=== PATIENT | male | born 1970 | race Caucasian/White ===

== ENCOUNTER 2016-08-23 08:07 | Emergency (ER) | payer SELFPAY ==
[~2016-08-23] VITALS: Ht 167.6 cm; Wt 89.8 kg
[2016-08-23] MEDS ORDERED: LIPITOR10 MG PO (08:18)
[2016-08-23] MEDS ORDERED: GLUCOPHAGE500 MG PO (08:18)
== END 2016-08-23 08:31 | disposition home or self-care (01) ==
LOC: ED 08:07
DX: Z00.8 Encounter for other general examination (principal)

== ENCOUNTER 2023-11-14 02:24 | Inpatient (IN) | payer OTHER ==
[~2023-11-14] VITALS: Ht 167.6 cm; Wt 81.1 kg
[2023-11-14] VITALS (9 sets, daily range): BP systolic 113–144; BP diastolic 67–77
[~2023-11-14 02:24] MED LIST: GLUCOPHAGE500 MG PO; LIPITOR10 MG PO
[2023-11-14] MEDS ORDERED: VENTOLIN HFA18 GM INH (02:39)
[2023-11-14] MEDS ORDERED: SODIUM CHLORIDE 0.9% 1,000 ML IV SCH ×2 (02:45→03:45)
[2023-11-14] MEDS ORDERED: ALBUTEROL SULFATE 0.5% 2.5 MG/0.5 ML VIAL INH ONE (02:45)
[2023-11-14] MEDS ORDERED: methylPREDNISolone SOD SUCC 125 MG/2 ML VIAL IV ONE (02:45)
[2023-11-14] MEDS ORDERED: CEFTRIAXONE/SODIUM CHLORIDE 2 GM/100 ML PIGGYBACK IV ONE (02:45)
[2023-11-14 02:47] LABS: BASOPHILS 0.9 % (0-2); EOSINOPHILS 4.7 % (0-6); HEMATOCRIT 44.4 % (35.0-50.0); HEMOGLOBIN 14.8 g/dL (12.0-18.0); LYMPHOCYTES 25.7 % (24-44); MCH 32.3 (27-36); MCHC 33.4 g/dl (30-36); MCV 96.8 fl (81-99); MONOCYTES 8.9 % (0-12); NEUTROPHILS 59.8 % (39-80); PLATELET COUNT 264 K/uL (140-440); RBC 4.59 M/ul (4.3-5.7); RDW 13.3 (10.5-15.0)
[2023-11-14 02:51] LABS: INR 0.97 (0.80-1.30); PROTIME 12.5 Sec (11.2-14.2)
[2023-11-14 02:53] LABS: PARTIAL THROMBOPLASTIN TIME 23.9 Sec (22.9-41.3)
[2023-11-14 02:58] LABS: ALBUMIN 3.6 g/dL (3.4-5.0); ALBUMIN/GLOBULIN RATIO 0.88 (1.1-2.4); ANION GAP 12.1 (7-21); BILIRUBIN, TOTAL 0.4 ng/dL (0.2-1.0); BUN/CREATININE RATIO 8.84 (6.0-28.6); CALCIUM 9.1 mg/dL (8.5-10.1); CREATININE, SERUM 1.13 mg/dL (0.70-1.30); POTASSIUM 4.1 mmol/L (3.5-5.1); PROTEIN, TOTAL 7.7 g/dL (6.4-8.2)
[2023-11-14 03:23] LABS: INFLUENZA B NAA NEGATIVE (NEGATIVE); RESPIRATORY SYNCYTIAL VIR NAA NEGATIVE (NEGATIVE)
--- NOTE | 2023-11-14 04:25 | NUR ---
0425 - ADMITTED TOP ROOM 113 FROM ER. PT ALERT AND ORIENTED, COOPERATIVE. TACHEIPNEIC. SOB WITH EXERTION NOTED. ON ROOM AIR, LUNGS WITH EXP AND INSPIRATORY WHEEZING T/O. ORIENTED TO ROOM, SECOND IVF INFUSING. COOPERATIVE WITH ASSESSMENT. AWARE OF NEED FOR UA, PT STAED, 'i VOIDED THE AMBULANCE WAS PULLING INTHE DRIVEWAY'.
[2023-11-14] MEDS ORDERED: ALBUTEROL SULFATE 0.083% 3 ML VIAL INH PRN (04:30)
--- NOTE | 2023-11-14 06:03 | NUR ---
Resting, eyes closed, no grunting or accessory muscles used noted. cpox on at bedside sats 96%. resp 22. still no void
--- NOTE | 2023-11-14 07:47 | NUR ---
PT SITTING UP ON BED DURING SHIFT REPORT. REPORTS SOB AT THIS TIME, OBVIOUS WORK OF BREATHING. R/T IN TO GIVE NEB TREATMENT. FRESH H20 AND NEEDED ITEMS ON BEDSIDE DENIES OTHER NEEDS OF
[2023-11-14 07:50] LABS: BILIRUBIN, URINE NEGATIVE (negative); BLOOD/HGB, URINE NEGATIVE (Negative); KETONE, URINE SMALL (Negative); LEUK ESTERASE, URINE NEGATIVE (negative); NITRITE, URINE NEGATIVE (negative)
[2023-11-14] MEDS ORDERED: ALBUTEROL/IPRATROPIUM 3 ML NEB INH SCH (08:00)
[2023-11-14 08:12] LABS: AMPHETAMINES, URINE POSITIVE (NEGATIVE); BARBITURATES, URINE NEGATIVE (NEGATIVE); BENZODIAZEPINE, URINE NEGATIVE (NEGATIVE); BUPRENORPHINE, URINE NEGATIVE (NEGATIVE); CANNABINOID, URINE NEGATIVE (NEGATIVE); COCAINE, URINE NEGATIVE (NEGATIVE); ECSTASY, URINE POSITIVE (NEGATIVE); FENTANYL, URINE NEGATIVE (NEGATIVE); METHADONE, URINE NEGATIVE (NEGATIVE); OPIATES, URINE NEGATIVE (NEGATIVE); OXYCODONE, URINE NEGATIVE (NEGATIVE); PHENCYCLIDINE, URINE NEGATIVE (NEGATIVE)
--- NOTE | 2023-11-14 09:05 | NUR ---
PT EATING MORNING MEAL DENIES NEED OF ADDITIONAL ITEMS.
--- NOTE | 2023-11-14 09:07 | NUR ---
PATIENT RESTING IN BED. EYES CLOSED. DOES NOT WAKE TO STAFF ENTERING ROOM, WILL RETURN TO COMPLETE ASSESSMENT LATER THIS AM.
--- NOTE | 2023-11-14 09:14 | NUR ---
0715 LACTIC IS 5.2, REVIEWED WITH DR. VASQUEZ, REPEAT STAT LACTIC IS 4.2. REVIEWED WITH DR. VASQUEZ AND PRIMARY NURSE MICHAEL.
[2023-11-14] MEDS ORDERED: LACTATED RINGER'S 1,000 ML IV ONE (10:15)
--- NOTE | 2023-11-14 10:32 | NUR ---
PT TO THE SHOWER DOES SELF CARE. LINENS CHANGED. PT AGREES HE FEELS MUCH BETTER, RETURNS TO BED. [address] 1 LPM SATS MID 90'S.
[2023-11-14] MEDS ORDERED: methylPREDNISolone SOD SUCC 40 MG/ML VIAL IV SCH (12:00)
--- NOTE | 2023-11-14 12:22 | NUR ---
PT SITTING UP IN BED WITH MEAL NO RESP DISTRESS NO C/O SOB.
[2023-11-14] MEDS ORDERED: NICOTINE 14 MG/24 HR 1 EA TDSY TD SCH (12:37)
--- NOTE | 2023-11-14 13:00 | NUR ---
PT NOT AVAILABLE FOR VISIT. PROVIDED PRAYER.
--- NOTE | 2023-11-14 13:38 | NUR ---
PATIENT ALERT AND ORIENTED IN BED. STATES HE LIVES IN APARTMENT WITH FRIEND. HAS STAIRS WITH [facility] AND SAYS SOMETIMES HE HAS TO SIT TO REST WHILE GOING INSIDE. HAS A CANE AND NEBULIZER AT HOME. NOT ABLE TO DRIVE, WORKING ON GETTING HIS LICENSE. STATES HIS DAUGHTER DRIVES WHEN HE NEEDS ASSISTANCE. GOBHI INFORMATION ALSO PROVIDED TO PATIENT AND INSTRUCTED ON USE OF GOBHI FOR MEDICAL APPOINTMENTS, VERBALIZES UNDERSTANDING. STATES NO FINANCIAL ISSUES HIS FRIEND HE LIVES WITH CONTINUES TO WORK AND ASSIST WITH NEEDS. DISCUSSED USE OF METH. STATES HE ONLY USES IT OCCASIONALLY TO HELP HIM STAY AWAKE. DISCUSSED SIDE EFFECTS OF METH AND VE TEACHER EFFECTS OF METH. VERBALIZES UNDERSTANDING. DOES NOT WANT THIS NURSE TO CONTACT MYAANK. MAYANK CARD PROVIDED TO PATIENT AND INFORMED OF MAYANK BEING A PEER GROUP HE CAN REACH OUT TO IF HE FEELS HE NEEDS HELP QUITTING METH USE. VERBALIZES UNDERSTANDING. DENIES OTHER NEEDS AT THIS TIME. CALL LIGHT IN REACH. DEMOGRAPHICS VERIFIED WITH PATIENT. STATES HE HAS A PHONE, NUMBER IS [phone]. ADMITTING NOTIFIED.
--- NOTE | 2023-11-14 14:38 | NUR ---
DR VASQUEZ NOTIFIED OF LACTIC LEVEL HE STATES HE WILL ENTER ORDERS OF FLUID AND ABX. PT IS RESTING IN BED WITH NO OVERT SYMPTOMS OF SEPSIS. ALERT AND ORIENTED BREATHING EVEN AND UNLABORED REMAINS AFEBRILE. PT IS TALKATIVE AND UPBEAT DENIES DISCOMFORTS OR NEEDS OF
[2023-11-14] MEDS ORDERED: CEFTRIAXONE/SODIUM CHLORIDE 1 GM/100 ML PIGGYBACK IV SCH (14:41)
[2023-11-14] MEDS ORDERED: SODIUM CHLORIDE 0.9% 1,000 ML IV ONE (14:45)
--- NOTE | 2023-11-14 16:19 | NUR ---
PT UP TO TOILET RETURNS TO RESTING IN BED STATES HE HAD A GOOD NAP. DENIES DISCOMFORT NO EVIDENCE OF SOB
--- NOTE | 2023-11-14 17:51 | NUR ---
PT SITTING UP AFTER NAPPING FOR A BIT EATS MOST OF EVENING MEAL. BREATHING EVEN AND UNLABORED SATS MID 90'S. FRESH H20 TO BEDSIDE PT DENIES OTHER NEEDS.
--- NOTE | 2023-11-14 18:03 | NUR ---
medications reconciled with patient. He says he needs doses for his nebs and has been using his friend's ampules
[2023-11-14] MEDS ORDERED: GLUCAGON,HUMAN RECOMBINANT 1 MG/ML VIAL SUB-Q PRN (18:30)
[2023-11-14] MEDS ORDERED: DEXTROSE 50% 50 ML SYR IV PRN ×2 (18:30)
[2023-11-14] MEDS ORDERED: DEXTROSE 5% 1,000 ML IV PRN (18:30)
[2023-11-14] MEDS ORDERED: IBLOOD GLUCOSE TEST STRIP 1 EA TEST XX PRN (18:30)
--- NOTE | 2023-11-14 18:52 | NUR ---
LACTIC CONTINUES TO BE ELEVATED BUT TRENDING DOWNWARD. LAB PHONES REPORTING 2.6 DR VASQUEZ NOT CALLED BECAUSE IT IS DOWN FROM 3.4 AND 4.2 EARLIER. ABX HAVE SINCE BEEN STARTED AND BOLUS ADMINISTERED
--- NOTE | 2023-11-14 20:22 | NUR ---
ON 1LNC, LUNGS WITH EXP WHEEZING PRESNET, SLIGHT SOB WITH EXERTION, CPOX ON AT BEDSIDE 90-95%, TACHY AT REST 102BPM. 2 SLM PATENT. CBG 308 ' I JUST HAD A CAKE', 'I DONT WANT THE INSULIN, BASIL NEVER HAD INSULIN, I DONT NEED IT', EXPLAINED TO PT SEVERAL TIMES, STILL DECLINED, WILL NOTIFY MD. COOPERATIVE OTHER MCMULLEN. NO C/O PAIN, DECLINES MELATONIN
[2023-11-14] MEDS ORDERED: IBLOOD GLUCOSE TEST STRIP 1 EA TEST XX SCH (21:00)
[2023-11-14] MEDS ORDERED: MELATONIN 3 MG TAB PO SCH (21:00)
[2023-11-14] MEDS ORDERED: INSULIN LISPRO 100 UNIT/ML ML SUB-Q SCH (21:00)
--- NOTE | 2023-11-14 21:58 | NUR ---
DR VAZQUEZ NOTIFIED OF PT DECLINING SS INSULI, AND OF CREATINEN LEVEL OF 2.6. NEW ORDERS FOR AM LACTIV LEVEL OBTAINED.
[2023-11-15] VITALS (11 sets, daily range): BP systolic 110–137; BP diastolic 60–80
--- NOTE | 2023-11-15 00:34 | NUR ---
resting, eyes closed, O2 1LNC, cpox on at bedside sats 93%, pulse 99, no distress noted. turns and reposisions self in bed
--- NOTE | 2023-11-15 03:34 | NUR ---
Resting, no distress, eyes closed, O2 1LNC, not chronic. CPOX on at bedside satts 93%. turns and reposisions self in bed. uses urinal
--- NOTE | 2023-11-15 03:51 | NUR ---
PT USED CALL LIGHT, ASKING FOR NEB TX. O2O 1LNC, RESP 28, ANXIOUS, HYPERVENTILATING, SATS 83%, PT STEAD HE DROPPED T6O 78%. O2 INCREAED TO 2LNC. LUNGS THIGHT BILAT, MOIST NON PRODUCTIVE COUGH PRESENT. RECEIVED NEB TX AND SCHEDULED SOLUMEDROL IV. CALMER DOWN, SATS 90% ON 2LNC, PULSE 112, RESP 24, CAKMER. VOIDED, USED URINAL.
[2023-11-15 05:45] LABS: BASOPHILS 0.1 % (0-2); EOSINOPHILS 0.1 % (0-6); HEMATOCRIT 41.7 % (35.0-50.0); HEMOGLOBIN 13.8 g/dL (12.0-18.0); LYMPHOCYTES 6.5 % (24-44); MCH 31.9 (27-36); MCHC 33.1 g/dl (30-36); MCV 96.3 fl (81-99); MONOCYTES 4.5 % (0-12); NEUTROPHILS 88.8 % (39-80); PLATELET COUNT 255 K/uL (140-440); RBC 4.33 M/ul (4.3-5.7); RDW 13.4 (10.5-15.0)
--- NOTE | 2023-11-15 05:46 | NUR ---
Calmer, resting, eyes closed no distress, on 2LNC. . Uses urinal, voiding QS, tolerataing liquids well. receiving solumedrol, CBG at begining of shift was 308, Pt declined SS Insulin, teaching done, not receptive, MD was informed. L front chest nicotine patch in place, 2 SL patent.
--- NOTE | 2023-11-15 05:56 | NUR ---
Pt has used home CPAP all HS, took melatoning for sleep, effective. tolerataing liquids well. turns and repositions self in bed. on room air otherwise. received 500cc bolus earlier on shift for creatine level of 4.04 and 20mEq of potassioum po fro potassium of 2.8 as per labs. Currently awake, cooperative with vitls, labs and standing daily weight at 131.6KG. Up to brp, 1PA/FWW. Has used urinal, voiding small amounts QS. no c/o pain or lightheadiness
[2023-11-15 05:57] LABS: ANION GAP 10.5 (7-21); BUN/CREATININE RATIO 21.27 (6.0-28.6); CREATININE, SERUM 0.94 mg/dL (0.70-1.30); MAGNESIUM 2.1 mg/dL (1.8-2.4); POTASSIUM 4.5 mmol/L (3.5-5.1)
--- NOTE | 2023-11-15 07:56 | NUR ---
PT RESTING EYES CLOSED AT TIME OF SHIFT REPORT. AWAKE NOW FOR CBG DENIES DISCOMFORTS OR NEEDS. BREATHING EVEN AND UNLABORED SATS 94% 02 TURNED TO 1 L. FRESH H20 TO BEDSIDE NEEDED ITEMS IN REACH
--- NOTE | 2023-11-15 08:10 | NUR ---
PATIENT IN BED AT THIS TIME. RICE FARMER WENT INTO ROOM FOR PATIENT ROUNDINGS AND BLOOD SUGAR WAS TAKEN. CALL LIGHT WITHIN REACH, NO FURTHER NEEDS AT THIS TIME.
--- NOTE | 2023-11-15 08:45 | NUR ---
PT AGREES HE IS READY FOR MORNING MEAL. USES URINAL PER STAFF REQUEST REFUSES CHAIR STATING MAYBE LATER
[2023-11-15] MEDS ORDERED: ENOXAPARIN SODIUM 40 MG/0.4 ML SYR SUB-Q SCH (09:00)
--- NOTE | 2023-11-15 09:44 | NUR ---
PT CONTINUES RESTING IN BED ENCOURAGED TO GET UP TO CHAIR AND DO SOME WALKING TOLERATED. PT VERBALIZES UNDERSTANDING REPORTS HE PLANS TO SHOWER AFTER A BIT AND UNDERSTANDS NEED FOR ACTIVITY
--- NOTE | 2023-11-15 10:40 | NUR ---
PATIENT IN BED AT THIS TIME. BUY BOAT OPERATOR GOT EVERYTHING READY FOR PATIENT TO SHOWER. CALL LIGHT WITHIN REACH, NO FURTHER NEEDS AT THIS TIME.
--- NOTE | 2023-11-15 10:52 | NUR ---
UR CLINICAL REVIEW: [facility] CRITERIA INPATIENT CRITERIA FOR ASTHMA ODS [facility] 11/14/23 @ 1238 ORDER MATCHES REG RECORDS FAXED FOR AUTH REVIEW DISCHARGE TO HOME WHEN STABLE 11/16/23
[2023-11-15] MEDS ORDERED: PHARMACY RENAL DOSE ADJUSTMENT 1 DOSE MISC PO SCH (12:00)
--- NOTE | 2023-11-15 12:28 | NUR ---
PT AWAKENED FOR NOON MEAL. HE WAS UP IN THE CHAIR EARLIER AND THEN RETUNED TO BED TO REST EYES CLOSED
--- NOTE | 2023-11-15 12:32 | NUR ---
PATIENT IN BED AT THIS TIME. BATCHMAKER WENT INTO PATIENTS ROOM FOR PATIENT ROUNDINGS AND TOOK PATIENTS BLOODSUGAR. CALL LIGHT WITHIN REACH, NO FURTHER NEEDS AT THIS TIME.
--- NOTE | 2023-11-15 14:56 | NUR ---
PT REQUESTING TO GO HOME, STATES HE FEELS MUCH BETTER. LUNGS ARE STILL WHEEZY THROUGHOUT MAINTAINING SATS ON RA LOW 90'S. DENIES SOB OR DISCOMFORTS. PLAN OF CARE EDUCATION PROVIDED, PT VERBALIZES UNDERSTANDING.
--- NOTE | 2023-11-15 16:08 | NUR ---
PATIENT IN BED AT THIS TIME. CHEMIST WENT INTO PATIENTS ROOM FOR PATIENT ROUNDINGS. CALL LIGHT WITHIN REACH, NO FURTHER NEEDS AT THIS TIME.
--- NOTE | 2023-11-15 17:53 | NUR ---
R/T REPORTS PT SATS DIPPED TO MID 80'S RETURNED TO 02 2L NC. PT UP IN BED WITH EVENING MEAL AT THIS TIME BREATHING EVEN AND UNLABORED DENIES SOB
--- NOTE | 2023-11-15 19:27 | NUR ---
REPORT RECEIVED FROM DAY SHIFT RN. PT AMB IN [place]OM[place] WITH . BACK TO ROOM CODI WELL. SpO2 UPON RETURNING TO ROOM 90% ON RA. PT DENIES NEEDS. WHITE BOARD UPDATED. CALL LIGHT IN REACH.
[2023-11-15] MEDS ORDERED: methylPREDNISolone SOD SUCC 125 MG/2 ML VIAL IV SCH (20:00)
--- NOTE | 2023-11-15 20:31 | NUR ---
EVENING ASSESSMENT COMPLETE. SCHEDULED MEDS ADMIN PER EMAR. PT DENIES PAIN OR NAUSEA. DENIES SOB. SpO2 LOW 90'S WITH 1L/NC IN PLACE. HR 100'S. SCATTERED WHEEZE HEARD THROUGHOUT. OCCASIONAL COUGH NOTED. PT REPORTS SMALL AMOUNT CLEAR PHLEGM. PT DENIES QUESTIONS OR CONCERNS. CALL LIGHT IN REACH.
--- NOTE | 2023-11-15 22:43 | NUR ---
PT AWAKE IN BED. DENIES NEEDS. SpO2 92% ON 1L/NC. HR 90'S.
[2023-11-15] MEDS ORDERED: ACETAMINOPHEN 500 MG TAB PO PRN (23:45)
[2023-11-16] VITALS (10 sets, daily range): BP systolic 109–141; BP diastolic 53–84
--- NOTE | 2023-11-16 00:57 | NUR ---
PATIENT REPORTING 10/10 BLE PAIN. PATIENT REPORTS THIS IS A CHRONIC PAIN AND HE THINKS IT IS RESTLESS LEGS. PRN PAIN MEDICATION ADMINISTERED. 2 PILLOWS PROVIDED PER PATIENT REQUEST. PATIENT HAS NO FURTHER NEEDS. CALL LIGHT IN REACH.
--- NOTE | 2023-11-16 02:00 | NUR ---
PT AMBULATING IN THOMAS INDEPENDENTLY. SpO2 93% ON RA UPON RETURNING TO ROOM. SCHEDULED MEDS ADMIN PER EMAR. PT DENIES SOB. WHEEZE AUSCULTATED THROUGHOUT. PT DENIES SOB. REQUESTING TO SHOWER. SUPPLIES PROVIDED. IV'S WRAPPED.
--- NOTE | 2023-11-16 02:29 | NUR ---
PT OUT OF THE SHOWER. CODI WELL. PT REQUESTING NEB TX. RT NOTIFIED.
--- NOTE | 2023-11-16 03:49 | NUR ---
PT RESTING IN BED ON RIGHT SIDE WITH EYES CLOSED. RESPIRATIONS EVEN. SpO2 91% ON RA. HR LOW 100'S.
--- NOTE | 2023-11-16 04:45 | NUR ---
CPOX ALARMING. PT LYING ON STOMACH SNORING SOFTLY. SpO2 BRIEFLY IN THE 70'S. PT AWAKENED AND ROLLED ON TO BACK. 1L/NC PLACED AND PT ENCOURAGED TO DEEP BREATHE. SpO2 QUICKLY BACK TO LOW 90'S.
--- NOTE | 2023-11-16 05:54 | NUR ---
PT LYING ON RIGHT SIDE WITH EYES CLOSED. AWAKENS EASILY. VS AND I&O OBTAINED. NO NEEDS AT THIS TIME. CALL LIGHT IN REACH.
[2023-11-16 06:12] LABS: BASOPHILS 0.2 % (0-2); HEMOGLOBIN 13.3 g/dL (12.0-18.0); LYMPHOCYTES 6.3 % (24-44); MCH 32.7 (27-36); MCHC 34.2 g/dl (30-36); MCV 95.6 fl (81-99); MONOCYTES 2.1 % (0-12); NEUTROPHILS 91.4 % (39-80); PLATELET COUNT 245 K/uL (140-440); RBC 4.08 M/ul (4.3-5.7); RDW 13.4 (10.5-15.0)
[2023-11-16 06:24] LABS: BUN/CREATININE RATIO 28.57 (6.0-28.6); CALCIUM 9.1 mg/dL (8.5-10.1); CREATININE, SERUM 0.91 mg/dL (0.70-1.30); MAGNESIUM 2.2 mg/dL (1.8-2.4)
--- NOTE | 2023-11-16 07:11 | NUR ---
RECEIVED REPORT FROM HANS MORGAN. PT RESTING IN BED WITH EYES CLOSED. 1L O2 IN PLACE VIA NC, CPOX IN PLACE, O2 SATURATION >90%. CALL LIGHT WITHIN REACH.
--- NOTE | 2023-11-16 09:15 | NUR ---
PT AWAKE SITTING UP IN BED. PT DENIES PAIN, NAUSEA, AND SOB AT THIS TIME. LUNG SOUNDS CLEAR AT THIS TIME, PT VERBALIZES UNDERSTANDING OF ACAPELLA DEVICE AT BEDSIDE, STATES HE FEELS "BETTER" AFTER BREATHING TREATMENT THIS MORNING. O2 VIA NC AT 2L, O2 SATURATION PER CPOX >94%, O2 WEANED DOWN TO 1L VIA NC, O2 SATURATION REMAINS >90%. PT CONTINUES TO DENY SOB AFTER WEANING O2. PT STATES NO CURRENT NEEDS, CALL LIGHT WITHIN REACH.
--- NOTE | 2023-11-16 09:24 | NUR ---
STATED PCP NO LONGER SEES PATIENTS PCP. PATIENT NOTIFIED. STATES HE IS OK WITH STAFF FINDING HIM A PCP. CALLED [facility]. FOLLOW-UP APPOINTMENT SCHEDULED. PCP ESTABLISHED WITH STEVEN VIGIL. REGISTRATION NOTIFIED TO UPDATE CHART.
[2023-11-16] MEDS ORDERED: NICOTINE 14 MG/24 HR 1 EA TDSY TD SCH (09:25)
[2023-11-16] MEDS ORDERED: INSULIN LISPRO 100 UNIT/ML ML SUB-Q SCH (12:00)
--- NOTE | 2023-11-16 14:40 | NUR ---
PT FATHER CALLS FOR UPDATE, PT STATES HIS FATHER IS OKAY TO UPDATE. THIS RN TO PT BEDSIDE AFTER UPDATE, PT SITTING UP ON EDGE OF BED, O2 SATURATION 85% ON 1L NC PER CPOX, PT SOB, STATES HE WOULD LIKE A BREATHING TREATMENT. O2 INCREASED TO 3L NC, O2 SATURATION INCREASES >89% ON 3L VIA NC. RT CALLED, WEDDING CAKE DESIGNER TO BEDSIDE TO ADMINISTER PRN BREATHING TREATMENT.
--- NOTE | 2023-11-16 14:49 | NUR ---
PT CALLED FOR BREATHING TREATMENT. SITTING ON EDGE OF BED TRIPODING WITH AUDIBLE ACROSS THE ROOM WHEEZING. ADMINISTERED.
[2023-11-16] MEDS ORDERED: ALBUTEROL SULFATE 0.5% 2.5 MG/0.5 ML VIAL INH ONE (15:00)
[2023-11-16] MEDS ORDERED: ALBUTEROL SULFATE 0.042% 1.25 MG/3 ML VIAL INH ONE (15:00)
[2023-11-16] MEDS ORDERED: ALBUTEROL SULFATE 0.5% 2.5 MG/0.5 ML VIAL ONE (15:02)
[2023-11-16] MEDS ORDERED: ALBUTEROL SULFATE 0.083% 3 ML VIAL INH ONE ×2 (15:15)
--- NOTE | 2023-11-16 15:16 | NUR ---
UR CONCURRENT REVIEW: [facility]-DOES NOT MEET GL DAY 2 DUE TO TACHYPNEA AND TACHYCARDIA, VIARANCE COMPLETED ODS [facility] 11/14/23 @ 1238 AWAITING AUTH DISCHARGE TO HOME WHEN STABLE
--- NOTE | 2023-11-16 15:38 | EKG ---
[facility] [address] [facility] [place] [address] Signed Sinus tachycardia with premature ventricular complexes or fusion complexes Low voltage QRS Borderline ECG No previous ECGs available Confirmed by Wendy Quinonez MD ([id number]) on 11/16/2023 3:38:07 PM Electronically Signed By: WENDY QUINONEZ MD 11/16/23 1538 PATIENT NAME: GRETCHEN BOYCE TIM Electrocardiogram DATE OF : 68 PHYSICIAN: WENDY QUINONEZ MD REPORT #: [id number] REPORT IS CONFIDENTIAL AND NOT TO BE RELEASED WITHOUT AUTHORIZATION
--- NOTE | 2023-11-16 15:45 | NUR ---
PT LYING IN BED, STATES SOB HAS RESOLVED. O2 SATURATION >91% ON 3L O2 VIA NC. PT STATES HE "FEELS BETTER" AFTER HAVING PRN BREATHING TREATMENT AND TREATMENT WITH RT. PT LUNG SOUNDS CLEAR AT THIS TIME, WHEEZING RESOLVED FROM EPISODE OF SOB AT THIS TIME. PT STATES NO FURTHER NEEDS AT THIS TIME, CALL LIGHT WITHIN REACH. PT EDUCATION ON USING CALL LIGHT WHEN SOB OCCURS, PT VERBALIZES UNDERSTANDING.
[2023-11-16] MEDS ORDERED: ALBUTEROL/IPRATROPIUM 3 ML NEB INH SCH (16:00)
--- NOTE | 2023-11-16 16:58 | NUR ---
THIS RN CALLS DR. HOOKER TO UPDATE ON PT CBG OF 394. STATES TO GIVE THE 13 UNITS PER SS AND THAT HE WILL MAKE ANY FURTHER NEEDED CHANGES. NO NEW ORDERS AT THIS TIME. REPEAT BACK PERFORMED.
--- NOTE | 2023-11-16 18:20 | NUR ---
PT AMBULATING HALLWAY.
--- NOTE | 2023-11-16 19:05 | NUR ---
REPORT RECEIVED FROM DEB MAXWELL. pt RESTING IN THE BED. BOARD UPDATED. NO OTHER NEEDS AT THIS TIME. CALL LIGHT WITHIN REACH.
--- NOTE | 2023-11-16 20:35 | NUR ---
ASSESSMENT AND VITAL SIGNS DONE. pt LUNG SOUNDS CLEAR. SCHEDULED MEDICATIONS ADMINISTERED. BG CHECKED WITH A RESULTS OF 360. SS INSULIN ADMINISTERED. SNACK PROVIDED. WATER REFRESHED. pt DENIES ANY OTHER NEEDS AT THIS TIME. pt INDEPENDENT IN THE RM. CALL LIGHT WITHIN REACH.
[2023-11-16] MEDS ORDERED: INSULIN GLARGINE-YFGN 100 UNIT/ML ML SUB-Q SCH (21:00)
--- NOTE | 2023-11-16 23:45 | NUR ---
pt WALKING AROUND MED/SURG TO TRY AND REDUCE THE PAIN IN HIS LEG. pt DENIES ANY NEEDS AT THIS TIME. CALL LIGHT WITHIN REACH.
--- NOTE | 2023-11-17 01:13 | NUR ---
pt TOOK A SHOWER AT 0030 FOR HIS COMFORT. pt INDEPENDENT IN THE RM. pt IS NOW RESTING IN THE BED WITH EYES CLOSED. RR EVEN AN UNLABORED. CALL LIGHT WITHIN.
--- NOTE | 2023-11-17 03:29 | NUR ---
pt SITTING IN THE RECEIVING A BREATHING TREATMENT FROM RT. pt DENIES ANY OTHER NEEDS AT THIS TIME. CALL LIGHT WITHIN REACH.
[2023-11-17 05:38] LABS: BASOPHILS 0.1 % (0-2); HEMATOCRIT 38.5 % (35.0-50.0); HEMOGLOBIN 13.2 g/dL (12.0-18.0); LYMPHOCYTES 6.6 % (24-44); MCH 32.6 (27-36); MCHC 34.3 g/dl (30-36); MCV 95.1 fl (81-99); MONOCYTES 3.4 % (0-12); NEUTROPHILS 89.9 % (39-80); PLATELET COUNT 254 K/uL (140-440); RBC 4.05 M/ul (4.3-5.7); RDW 13.2 (10.5-15.0)
[2023-11-17 05:42] VITALS: BP 124/67
--- NOTE | 2023-11-17 05:46 | NUR ---
CHURCH SECRETARY OBTAINED VITALS AND I&O. PT URINAL EMPTIED. PT STATES NO NEEDS AT THIS TIME. CALL LIGHT WITHIN REACH.
[2023-11-17 05:47] LABS: ANION GAP 9.4 (7-21); BUN/CREATININE RATIO 26.8 (6.0-28.6); CREATININE, SERUM 0.97 mg/dL (0.70-1.30); MAGNESIUM 2.3 mg/dL (1.8-2.4); POTASSIUM 4.4 mmol/L (3.5-5.1)
--- NOTE | 2023-11-17 06:20 | NUR ---
pt UP UNTIL APPROXIMATELY MIDNIGHT THEN pt FINALLY WAS ABLE TO LAY DOWN AND REST AFTER A SHOWER. pt LUNG SOUND ARE CLEAR. pt RECEIVED BREATHING TREATMENTS Q4 PER ORDER. pt ON 2LNC THROUGH OUT THE NIGHT AND SATTING AT 95-97%.
--- NOTE | 2023-11-17 07:15 | NUR ---
RECEIVED REPORT FROM HANS STEPHENS. PT RESTING IN BED WITH EYES CLOSED, BREATHING EVEN AND UNLABORED. CPOX IN PLACE, O2 SAT >90% ON 2L NC. CALL LIGHT WITHIN REACH.
--- NOTE | 2023-11-17 09:34 | NUR ---
PT AWAKE IN BED. PT DENIES PAIN, NAUSEA AND SOB. LUNG SOUNDS CLEAR IN BASES, FAINT EXPIRATORY WHEEZE HEARD IN UPPER LOBES, PT WORKED WITH RT JUST PRIOR TO THIS ASSESSMENT. PT STATES NO NEEDS AT THIS TIME, CALL LIGHT WITHIN REACH.
[2023-11-17 09:39] VITALS: BP 130/66
[2023-11-17 09:52] VITALS: BP 130/66
--- NOTE | 2023-11-17 10:12 | NUR ---
VISITED DURING SPIRITUAL CARE ROUNDS. PT APPEARED TO BE SLEEPING. DID NOT DISTURB. PROVIDED PRAYER.
[2023-11-17] MEDS ORDERED: MAGNESIUM SULFATE 2 GM/50 ML BAG IV ONE (10:30)
--- NOTE | 2023-11-17 10:57 | NUR ---
PATIENT IS SLEEPING. CM WILL NOT WAKE THE PATIENT AT THIS TIME. PATIENT WILL DC WHEN MEDICALLY STABLE.
--- NOTE | 2023-11-17 12:23 | NUR ---
PT RETURNS TO ROOM AFTER AMBULATING IN HALLWAY, EATING LUNCH. PT DENIES PAIN, NAUSEA AND SOB AT THIS TIME. PT STATES NO CURRENT NEEDS, CALL LIGHT WITHIN REACH.
--- NOTE | 2023-11-17 12:40 | NUR ---
PT USES CALL LIGHT, THIS RN TO BEDSIDE. PT STATES IV IS BURNING, IV INSERTION SITE PRESENTS WITH MINIMAL REDNESS, NO BLOOD RETURN, LEAKING WITH FLUSH. IV INFUSION STOPPED. DR. NHUNG AUGUSTINE MD STATES IS OKAY TO STO INFUSION AND NOT GIVE. PT STATES NO FURTHER NEEDS AT THIS TIME, CALL LIGHT WITHIN REACH.
[2023-11-17 13:02] VITALS: BP 121/66
--- NOTE | 2023-11-17 13:32 | NUR ---
CALL TO DM EDUCATOR, THEY WILL BE ABLE TO CONSULT FOR PATIENT TODAY AROUND 2:30-3PM. PRIMARY RN DEB NOTIFIED AND UPDATED.
[2023-11-17] MEDS ORDERED: IPRAT-ALBUT 0.5-3 ML INH (14:11)
[2023-11-17] MEDS ORDERED: ALBUTEROL2.5 MG/3 M INH (14:11)
[2023-11-17] MEDS ORDERED: PREDNISONE20 MG PO (14:16)
[2023-11-17] MEDS ORDERED: SYMBICORT 16010.2 GM INH (14:18)
[2023-11-17] MEDS ORDERED: INSULIN GL100 UNIT/1 SUB-Q (14:19)
[2023-11-17] MEDS ORDERED: ADMELOG100 UNIT/1 SUB-Q (14:20)
[2023-11-17] MEDS ORDERED: ONE TOUCH ULTR1 EACH MISC (14:22)
[2023-11-17] MEDS ORDERED: ONE TOUCH VERI EAC MISC (14:22)
[2023-11-17] MEDS ORDERED: [UNRECOGNIZED DRUG - SUPPLY] MISC (14:26)
--- NOTE | 2023-11-17 16:30 | NUR ---
PT DC PACKET AND EDUCATION GIVEN, PT VERBALIZES UNDERSTANDING. VSS. PT LEAVING WITH ALL PERSONAL BELONGINGS. PT DAUGHTER HERE TO DRIVE HIM HOME. PT AMBULATES TO FRONT OF BUILDING WITH NURSING PERSONEL.
[2023-11-17 16:34] VITALS: BP 144/85
[2023-11-17 16:36] VITALS: BP 144/85
== END 2023-11-17 16:37 | disposition home or self-care (01) | DRG 202 ==
LOC: ED 02:24 → MS 02:26
PROVIDERS: Emergency Medicine; ADMIT Student in an Organized Health Care Education/Training Program; ATTEND Student in an Organized Health Care Education/Training Program
DX: J45.901 Unspecified asthma with (acute) exacerbation (principal); E87.20 Acidosis, unspecified; F15.10 Other stimulant abuse, uncomplicated; Z71.51 Drug abuse counseling and surveillance of drug abuser; F17.210 Nicotine dependence, cigarettes, uncomplicated; E11.9 Type 2 diabetes mellitus without complications; E78.00 Pure hypercholesterolemia, unspecified; E55.9 Vitamin D deficiency, unspecified; Z87.442 Personal history of urinary calculi; Z98.890 Other specified postprocedural states; Z79.899 Other long term (current) drug therapy
CPT/HCPCS: 36415; 71045; 71046; 80048; 80053; 80307; 81003; 83036; 83605; 83735; 85025; 85610; 85730; 87040; 87502; 93005; 93010; 94640; 94644; 94667; 94668; 94760; 94761; 94762; 96376; A9270; G0378; J0696; J1650; J1815; J2919; J3475; J7030; J7121; U0002

== ENCOUNTER 2023-12-07 13:15 | Inpatient (IN) | payer OTHER ==
[~2023-12-07] VITALS: Ht 167.6 cm; Wt 80.0 kg
[~2023-12-07 13:15] MED LIST changes: +ADMELOG100 UNIT/1 SUB-Q; +ALBUTEROL2.5 MG/3 M INH; +INSULIN GL100 UNIT/1 SUB-Q; +IPRAT-ALBUT 0.5-3 ML INH; +ONE TOUCH ULTR1 EACH MISC; +ONE TOUCH VERI EAC MISC; +PREDNISONE20 MG PO; +SYMBICORT 16010.2 GM INH; +VENTOLIN HFA18 GM INH; +[UNRECOGNIZED DRUG - SUPPLY] MISC
[2023-12-07] MEDS ORDERED: ALBUTEROL/IPRATROPIUM 3 ML NEB INH PRN (13:30)
[2023-12-07] MEDS ORDERED: ALBUTEROL SULFATE 0.5% 2.5 MG/0.5 ML VIAL INH ONE ×2 (13:30→13:45)
[2023-12-07 13:37] LABS: BASOPHILS 1.1 % (0-2); HEMATOCRIT 41.8 % (35.0-50.0); HEMOGLOBIN 14.1 g/dL (12.0-18.0); LYMPHOCYTES 25.5 % (24-44); MCH 32.3 (27-36); MCHC 33.7 g/dl (30-36); MCV 95.7 fl (81-99); MONOCYTES 9.8 % (0-12); NEUTROPHILS 58.6 % (39-80); PLATELET COUNT 233 K/uL (140-440); RBC 4.36 M/ul (4.3-5.7); RDW 12.9 (10.5-15.0)
[2023-12-07 14:00] LABS: ALBUMIN 3.2 g/dL (3.4-5.0); ALBUMIN/GLOBULIN RATIO 0.86 (1.1-2.4); ANION GAP 12.8 (7-21); BILIRUBIN, TOTAL 0.7 ng/dL (0.2-1.0); BUN/CREATININE RATIO 6.6 (6.0-28.6); CREATININE, SERUM 1.06 mg/dL (0.70-1.30); MAGNESIUM 1.9 mg/dL (1.8-2.4); POTASSIUM 3.8 mmol/L (3.5-5.1); PROTEIN, TOTAL 6.9 g/dL (6.4-8.2)
[2023-12-07] MEDS ORDERED: MAGNESIUM SULFATE 2 GM/50 ML BAG IV ONE (14:30)
--- OUTSIDE RECORDS SUMMARY | 2023-12-07 14:48 | XMS ---
PreManage Notification: GRETCHEN BOYCE Security Consulting Practice Manager Events No recent Security Events currently on file CRITERIA MET - [facility] - 2 Visits in 30 Days CARE PROVIDERS -, [facility] Dentist: Life Science Teacher [facility] PHONE: [phone] -[place]- Dentist: Life Science Teacher [facility] PHONE: [phone] [place] [facility]: [facility] PHONE: [phone] Kyle has no Care Guidelines for this patient. E.D. VISIT COUNT (12 MO.) 2 [facility] TOTAL 2 NOTE: Visits indicate total known visits. ED/UCC VISIT TRACKING (12 MO.) 12/07/2023 13:15 [facility] TYPE: Emergency COMPLAINT: - SHORTNESS OF BREATH 11/14/2023 02:25 [facility] TYPE: Emergency COMPLAINT: - SOB INPATIENT VISIT TRACKING (12 MO.) 11/14/2023 12:[address] [facility] OR TYPE: Medical Surgical COMPLAINT: - ASTHMA EXACERBATION SEPSIS METHAMPHETAMINE ABUSE DIAGNOSES: - Acidosis, unspecified - Drug abuse counseling and surveillance of drug abuser - Nicotine dependence, cigarettes, uncomplicated - Other assisted (current) drug therapy - Other specified postprocedural states - Other stimulant abuse, uncomplicated - Personal history of urinary calculi - Pure hypercholesterolemia, unspecified - Type 2 diabetes mellitus without complications - Unspecified asthma with (acute) exacerbation - Vitamin D deficiency, unspecified [email or web address]
[2023-12-07] MEDS ORDERED: predniSONE 20 MG TAB PO SCH (16:54)
[2023-12-07] MEDS ORDERED: ondansetron HCL 4 MG/2 ML VIAL IV PRN (17:00)
[2023-12-07] MEDS ORDERED: ACETAMINOPHEN 325 MG TAB PO PRN (17:00)
[2023-12-07] MEDS ORDERED: DEXTROSE 50% 50 ML SYR IV PRN ×2 (17:00)
[2023-12-07] MEDS ORDERED: IBLOOD GLUCOSE TEST STRIP 1 EA TEST XX PRN (17:00)
[2023-12-07] MEDS ORDERED: DEXTROSE 5% 1,000 ML IV PRN (17:00)
[2023-12-07] MEDS ORDERED: GLUCAGON,HUMAN RECOMBINANT 1 MG/ML VIAL SUB-Q PRN (17:00)
[2023-12-07] MEDS ORDERED: IBLOOD GLUCOSE TEST STRIP 1 EA TEST VI SCH (17:00)
[2023-12-07] MEDS ORDERED: ENOXAPARIN SODIUM 40 MG/0.4 ML SYR SUB-Q SCH (17:01)
[2023-12-07] MEDS ORDERED: ALBUTEROL SULFATE 0.083% 3 ML VIAL INH PRN (18:00)
[2023-12-07 18:08] VITALS: BP 113/64
--- NOTE | 2023-12-07 18:26 | NUR ---
PT ARRIVED TO FLOOR BLOOD SUGAR 252, NO INSULIN SLIDING SCALE ORDERS. PT TAKES METFORMIN AT HOME BUT ON ADMISSION STATES HAS NOT BEEN TAKING MEDICATIONS. PER MD HIGH DOSE INSULIN, ADD A1C TO TOMORROW LAB ORDERS. ORDERS INPUT.
--- NOTE | 2023-12-07 18:27 | NUR ---
PT IS SITTING IN BED AT THIS TIME EATING DINNER, HAS FAMILY PRESENT AT BEDSIDE. IV PATENT, SALINE LOCKED AT THIS TIME. O2 95% ON 3L NC AT THIS TIME. DOES NOT APPEAR TO BE IN RESPIRATORY DISTRESS EATING. WILL CONTINUE TO MONITOR.
[2023-12-07] MEDS ORDERED: INSULIN LISPRO 100 UNIT/ML ML SUB-Q SCH (18:30)
--- NOTE | 2023-12-07 18:46 | NUR ---
PT COMPLETED DINNER, HE STATES NOT SOB, CURRENTLY ON 3L NC. RT CALLED AFTER ASSESSMENT, HE HAS INSP/EXP WHEEZES AND VERY TIGHT, COUGH WITH DEEP INSPIRATION. RT AWARE AND WILL BE FIRST PATIENT ON ASSESSMENT TONIGHT PER RT NOW. INSULIN GIVEN. PT REQUESTING A SOFT DIET TEXTURE HE HAS NO DENTURES/TEETH. ORDER UPDATED. ALL PT CARE NEEDS MET AT THIS TIME, CALL LIGHT WITHIN REACH, LIGHTS TURNED DOWN. NO FURTHER NEEDS AT THIS TIME
--- NOTE | 2023-12-07 19:20 | NUR ---
REPORT RECEIVED FROM LONNIE MAXWELL. pt RESTING IN THE BED. pt DENIES ANY NEEDS AT THIS TIME. CALL LIGHT WITHIN REACH. BOARD UPDATED.
[2023-12-07] MEDS ORDERED: ALBUTEROL/IPRATROPIUM 3 ML NEB INH SCH (20:00)
[2023-12-07] MEDS ORDERED: BUDESONIDE 0.5 MG/2 ML VIAL INH SCH (20:00)
[2023-12-07 20:44] VITALS: BP 126/75
[2023-12-07 20:45] VITALS: BP 126/75
--- NOTE | 2023-12-07 20:46 | NUR ---
BIT SHARPENER OBTIANED VITALS AND I&O. PT BLOOD SUGAR CHECKED. PT STATES NO FURTHER NEEDS AT THIS TIME. CALL LIGHT WITHIN REACH.
--- NOTE | 2023-12-07 21:05 | NUR ---
ASSESSMENT AND VITAL SIGNS DONE. pt HAS EXPERATORY AND INSPERATORY WHEEZES. pt ON 3LNC. pt DENIES ANY SOB AT THIS TIME. CALL LIGHT WITHIN REACH. IV ASSESSED, WNL. pt DENIES ANY OTHER NEEDS AT THIS TIME.
--- NOTE | 2023-12-07 22:59 | NUR ---
CALL FROM CACHORRO IN IMAGING, ON WAY TO GET pt. THIS RN IN ROOM AND FOUND pt W/O O2, O2 SET TO 3LNC-pt AWOKE EASILY AND STATES, "YEAH I FORGET TO PUT IT BACK ON AFTER I WENT PEE". SPO2 ON RA, 89%, 3LNC BACK IN PLACE AND NOW UPPER 90'S. pt EDUCATED ON IMPORTANCE OF KEEPING O2 IN PLACE AND HAVING STAFF ASSIST TO BATHROOM, pt WILL HAVE BED ALARM MOVING FORWARD. PRIMARY RN AND MANUFACTURING QUALITY TECHNICIAN AWARE. pt OFF FLOOR AT THIS TIME FOR ORDERED IMAGING.
--- NOTE | 2023-12-07 23:45 | NUR ---
pt BACK FROM CT AND REQUESTS A SHOWER. pt SET UP FOR SHOWER. 3LNC. pt DENIES ANY OTHER NEEDS AT THIS TIME. CALL LIGHT WITHIN REACH.
[2023-12-08] VITALS (8 sets, daily range): BP systolic 110–121; BP diastolic 56–73
--- NOTE | 2023-12-08 01:41 | NUR ---
FINANCIAL OPERATIONS ANALYST OBTAINED VITALS AND I&O. PT STATES NO NEEDS AT THIS TIME. CALL LIGHT WITHIN REACH.
--- NOTE | 2023-12-08 03:05 | NUR ---
pt RESTING IN THE BED WITH EYES CLOSED. pt TITRATED DOWN TO RA AT THIS TIME. pt SATTING AT 91%. NO OTHER NEEDS AT THIS TIME. CALL LIGHT WITHIN REACH.
--- NOTE | 2023-12-08 05:30 | NUR ---
VITAL SIGNS AND ASSESSMENT. pt HAS WHEEZES THROUGH OUT HIS LUNGS. pt DENIES ANY NEEDS AT THIS TIME. CALL LIGHT WITHIN REACH.
[2023-12-08 05:41] LABS: BASOPHILS 0.2 % (0-2); HEMATOCRIT 41.9 % (35.0-50.0); HEMOGLOBIN 14.1 g/dL (12.0-18.0); LYMPHOCYTES 10.7 % (24-44); MCH 32.2 (27-36); MCHC 33.7 g/dl (30-36); MCV 95.5 fl (81-99); MONOCYTES 6.6 % (0-12); NEUTROPHILS 82.5 % (39-80); PLATELET COUNT 240 K/uL (140-440); RBC 4.38 M/ul (4.3-5.7)
[2023-12-08 05:57] LABS: ANION GAP 9.2 (7-21); BUN/CREATININE RATIO 16.66 (6.0-28.6); CALCIUM 9.1 mg/dL (8.5-10.1); CREATININE, SERUM 0.9 mg/dL (0.70-1.30); POTASSIUM 4.2 mmol/L (3.5-5.1)
[2023-12-08] MEDS ORDERED: levoFLOXacin 500 MG TAB PO SCH (06:00)
--- NOTE | 2023-12-08 08:10 | NUR ---
RECEIVED REPORT FROM JOE RN, PT RESTING WITH EYES CLOSED AT THIS TIME. ALLOW TO SLEEP AT THIS TIME, CALL LIGHT WITHIN REACH.
--- NOTE | 2023-12-08 08:13 | NUR ---
UR CLINICAL REVIEW: [facility] INPT FOR COPD [facility] 12/07/23 @ 1701 ORDER MATCHES REG WILL SEND CLINICALS FOR AUTH VIA RIGHTFAX PLAN TO DC TO HOME WHEN STABLE, 2-3 DAYS 12/10/23
[2023-12-08] MEDS ORDERED: FLUTICASONE-SA1 EAC4 INH (09:02)
[2023-12-08] MEDS ORDERED: VARENICLINE1 EACH PO (09:03)
[2023-12-08] MEDS ORDERED: METFORMIN HCL500 MG PO (09:03)
--- NOTE | 2023-12-08 09:46 | NUR ---
PT RESTING UPON ENTERING ROOM, AWAKENS TO CONVERSATION. LUNGS SOUNDS STILL WHEEZES INSP/EXP, COUGH WITH DEEP INSPIRATION, HAS SOME SPUTUM BUT NONPRODUCTIVE AT THIS TIME. SATS 94% ON RA. PT CALL LIGHT WITHIN REACH, ALL PT CARE NEEDS MET AT THIS TIME.
--- NOTE | 2023-12-08 09:50 | NUR ---
Spoke with Shade. He lives in [facility] [place] in an apartment with his SO and his 18 yo daughter. He has canes but does not needs. He has a nebulizer, but states the filter broke when he attempted to use yesterday. It is over 5 years old, I let him know I can speak with for an RX for a new one. Pt denies any issues walking. He does have over 20 [address] into his second story apartment. He bogdan issues getting in our out. States he has had asthma for years and has exacerbations. He denies financial issues. 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 He plans on dc to home with family when discharged. I will ask for an RX for a nebulizer.He would like to use [facility] for his DME. He is off o2 at this time.
--- NOTE | 2023-12-08 10:30 | NUR ---
VISITED DURING SPIRITUAL CARE ROUNDS. PT STATES SLEEPS A LOT, DENIES NEEDS, NO OVERT SIGNS OF ANXIETY. BANANA EXPERT PROVIDED SUPPORTIVE PRESENCE, HOSPITALITY, PRAYER.
[2023-12-08] MEDS ORDERED: PHARMACY RENAL DOSE ADJUSTMENT 1 DOSE MISC PO SCH (12:00)
[2023-12-08] MEDS ORDERED: IPRAT-ALBUT 0.5-3 ML INH (13:06)
--- NOTE | 2023-12-08 13:06 | NUR ---
MED REC COMPLETE
--- NOTE | 2023-12-08 14:40 | EKG ---
[facility] [address] [place] [address] Signed Sinus tachycardia Otherwise normal ECG When compared with ECG of 14-NOV-2023 02:30, fusion complexes are no longer present premature ventricular complexes are no longer present Confirmed by Migue Louise MD ([id number]) on 12/08/2023 2:40:35 PM Electronically Signed By: MIGUE LOUISE DO 12/08/23 1440 PATIENT NAME: BOYCEGRETCHEN Electrocardiogram DATE OF : 68 PHYSICIAN: MIGEU LOUISE DO REPORT #: [id number] REPORT IS CONFIDENTIAL AND NOT TO BE RELEASED WITHOUT AUTHORIZATION
--- NOTE | 2023-12-08 15:13 | NUR ---
Patient had visitors in room. Coffee was requested and given. No other cares were needed.
--- NOTE | 2023-12-08 16:33 | NUR ---
ROUNDED ON PT. PT APPEARS TO BE SLEEPING COMFORTABLY. RESPIRATIONS EVEN AND REGULAR.
--- NOTE | 2023-12-08 18:00 | NUR ---
ROUNDED ON PT. PT APPEARS TO BE SLEEPING COMFORTABLY. RESPIRATIONS EVEN AND REGULAR. CALL LIGHT WITHIN REACH.
--- NOTE | 2023-12-08 19:20 | NUR ---
REPORT RECEIVED FROM CHELSIE MAXWELL. pt RESTING IN THE BED WITH EYES CLOSED. RR EVEN AND UNLABORED. BOARD UPDATED. CALL LIGHT WITHIN REACH.
--- NOTE | 2023-12-08 20:40 | NUR ---
ASSESSMENT AND VITAL SIGNS DONE. pt UP TO THE BR, SBA. pt BACK TO BED AND SOB. RT IN RM TO GIVE BREATHING TREATMENT. WHEEZES THROUGH OUT HER LUNGS. WATER REFRESHED. BG CHECKED WITH A RESULTS OF 288, SS INSULIN ADMINISTERED. pt DENIES ANY OTHER NEEDS AT THIS TIME. CALL LIGHT WITHIN REACH.
--- NOTE | 2023-12-09 00:42 | NUR ---
pt RESTING IN THE BED WITH EYES CLOSED. RR EVEN AND UNLABORED. CALL LIGHT WITHIN REACH.
--- NOTE | 2023-12-09 02:37 | NUR ---
NO OTHER NEEDS AT THIS TIME. CALL LIGHT WITHIN REACH. pt RESTING IN THE BED WITH EYES CLOSED. RR EVEN AND UNLABORED. pt SATTING AT 91% ON RA.
[2023-12-09 05:31] LABS: PROCALCITONIN 0.07 ng/mL (())
[2023-12-09 05:42] LABS: BASOPHILS 0.7 % (0-2); EOSINOPHILS 0.4 % (0-6); HEMATOCRIT 42.6 % (35.0-50.0); HEMOGLOBIN 14.5 g/dL (12.0-18.0); LYMPHOCYTES 28.2 % (24-44); MCH 32.6 (27-36); MONOCYTES 9.1 % (0-12); NEUTROPHILS 61.6 % (39-80); PLATELET COUNT 259 K/uL (140-440); RBC 4.44 M/ul (4.3-5.7)
[2023-12-09 05:44] VITALS: BP 128/66
[2023-12-09 05:54] LABS: BUN/CREATININE RATIO 15.92 (6.0-28.6); CALCIUM 9.3 mg/dL (8.5-10.1); CREATININE, SERUM 1.13 mg/dL (0.70-1.30)
[2023-12-09 05:55] LABS: SMEAR REVIEW BLOOD SEE COMMENTS
--- NOTE | 2023-12-09 07:10 | NUR ---
REPORT RECEIVED FROM SENIOR RELATIONSHIP MANAGER RN KAT. PATIENT IS LYING IN BED WITH EYES CLOSED AND RESPIRATIONS ARE EVEN AND UNLABORED. CPOX AT THE BEDSIDE. CALL LIGHT AND PERSONAL BELONGINGS ARE WITHIN REACH.
--- NOTE | 2023-12-09 08:55 | NUR ---
MEDICATION ADMINISTERED PER APR, INITIAL ASSESSMENT COMPLETE. PT ALERT AND ORIENTED, ANSWERS QUESTIONS APPROPRIATELY. CURRENTLY REPORTS NO PAIN. PT LUNG SOUNDS CLEAR IN BUL, OCCASIONAL INSPIRATORY WHEEZE IN BLL, NO COMPLAINTS OF SOB, REPORTS HE JUST HAD RT TREATMENT BEFORE BREAKFAST. PT ON RA, CPOX AT BEDSIDE. HEART TONES HEARD WNL, BOWEL TONES ACTIVE, NO TENDERNESS TO PALPATION. PULSES FELT 2+ IN ALL EXTREMETIES, PT REPORTS CHRONIC NUMBNESS IN BILATERAL FEET. IV IN L AC FLUSHES WNL. BREAKFAST TRAY REMOVED, FRESH CUP OF COFFEE PROVIDED PER PT REQUEST. NO OTHER NEEDS AT THIS TIME, CALL LIGHT AND PERSONAL BELONGINGS IN REACH.
[2023-12-09 09:37] VITALS: BP 118/65
--- NOTE | 2023-12-09 09:48 | NUR ---
ROUNDING ON PT. PT SITTING UP IN BED ON PHONE, REPORTS NO NEEDS AT THIS TIME. CALL LIGHT AND PERSONAL BELONGINGS IN REACH.
[2023-12-09 09:53] VITALS: BP 118/65
--- NOTE | 2023-12-09 09:53 | NUR ---
HANS FINK RN MEWS AT THIS TIME.
--- NOTE | 2023-12-09 10:15 | NUR ---
Spoke with David. He plans on dc to home today. Daughter can pick him up after 3:30. Charge nurse notified. Updated Rx and chart have been faxed to [facility] for a nebulizer. They will deliver Tuesday or Tuesday. Pt states this is fine as he has a nebulizer that is several years old. He can cont. to use, but it doesn't work like it used to. Pt states he has meds for the nebulizer. Denies further needs.
--- NOTE | 2023-12-09 10:44 | NUR ---
PATIENT IN BED AT THIS TIME. COMMERCIAL AGENT SET PATIENT UP FOR SHOWER. CALL LIGHT WITHIN REACH NO FURTHER NEEDS AT THIS TIME.
--- NOTE | 2023-12-09 11:30 | NUR ---
RN REVIEWED DANAE, RN HOURLY ROUNDING AT THIS TIME.
--- NOTE | 2023-12-09 11:53 | NUR ---
RN REVIEWED DANAE, RN SHIFT SCREENING AT THIS TIME.
--- NOTE | 2023-12-09 13:34 | NUR ---
RN REVIEWED DANAE, RN HOURLY ROUNDING AT THIS TIME.
--- NOTE | 2023-12-09 14:25 | NUR ---
RN REVIEWED DANAE, RN HOURLY ROUNDING AT THIS TIME.
[2023-12-09] MEDS ORDERED: LEVOFLOXACIN500 MG PO (14:26)
[2023-12-09] MEDS ORDERED: PREDNISONE20 MG PO (14:27)
[2023-12-09 14:36] VITALS: BP 123/68
[2023-12-09 14:43] VITALS: BP 123/68
--- NOTE | 2023-12-09 15:45 | NUR ---
RN REVIEWED DANAE, FOREST ECOLOGY PROFESSOR TRANSFER/SUMMARY AT THIS TIME.
== END 2023-12-09 15:45 | disposition home or self-care (01) | DRG 189 ==
LOC: ED 13:15 → MS 17:08
PROVIDERS: Emergency Medicine; ADMIT Student in an Organized Health Care Education/Training Program; ATTEND Family Medicine
DX: J96.01 Acute respiratory failure with hypoxia (principal); J44.1 Chronic obstructive pulmonary disease with (acute) exacerbation; E11.9 Type 2 diabetes mellitus without complications; F17.210 Nicotine dependence, cigarettes, uncomplicated; Z79.51 Long term (current) use of inhaled steroids; Z79.4 Long term (current) use of insulin; Z79.52 Long term (current) use of systemic steroids
CPT/HCPCS: 36415; 71045; 71260; 80048; 80053; 82803; 83036; 83735; 84484; 85025; 85060; 93005; 93010; 94640; 94667; 94668; 94760; 94762; J1650; J1815; J3475; J7512

== ENCOUNTER 2023-12-24 17:39 | Emergency (ER) | payer OTHER ==
[~2023-12-24] VITALS: Ht 167.6 cm; Wt 89.2 kg
--- NOTE | ~2023-12-24 | EKG ---
[facility] [address] [place], [place] [address] Draft EK completed, results pending confirmation PATIENT NAME: AUSTENGRETCHEN Electrocardiogram DATE OF : 68 PHYSICIAN: PRELIMINARY REPORT #: [id number] REPORT IS CONFIDENTIAL AND NOT TO BE RELEASED WITHOUT AUTHORIZATION
[~2023-12-24 17:39] MED LIST changes: +FLUTICASONE-SA1 EAC4 INH; +LEVOFLOXACIN500 MG PO; +METFORMIN HCL500 MG PO; +VARENICLINE1 EACH PO
[2023-12-24] MEDS ORDERED: ALBUTEROL/IPRATROPIUM 3 ML NEB INH PRN (17:45)
--- OUTSIDE RECORDS SUMMARY | 2023-12-24 17:45 | XMS ---
PreManage Notification: GRETCHEN BOYCE Security Hydro Pneumatic Tester Events No recent Security Events currently on file CRITERIA MET - [facility] - 2 Visits in 30 Days CARE PROVIDERS -, [facility] Dentist: Curriculum Coordinator [facility] PHONE: [phone] -[place]- Dentist: Curriculum Coordinator [facility] PHONE: [phone] [place] [facility]: Primary [facility] PHONE: [phone] Kyle has no Care Guidelines for this patient. E.D. VISIT COUNT (12 MO.) 3 [facility] TOTAL 3 NOTE: Visits indicate total known visits. 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 TYPE: Medical Surgical COMPLAINT: - ASTHMA EXACERBATION SEPSIS METHAMPHETAMINE ABUSE DIAGNOSES: - Acidosis, unspecified - Drug abuse counseling and surveillance of drug abuser - Nicotine dependence, cigarettes, uncomplicated - Other watermelon harvesting supervisor (current) drug therapy - Other specified postprocedural states - Other stimulant abuse, uncomplicated - Personal history of urinary calculi - Pure hypercholesterolemia, unspecified - Type 2 diabetes mellitus without complications - Unspecified asthma with (acute) exacerbation - Vitamin D deficiency, unspecified [email or web address]
[2023-12-24 17:58] LABS: PH, VENOUS 7.359 (7.31-7.41)
[2023-12-24] MEDS ORDERED: IPRATROPIUM BROMIDE 2.5 ML VIAL INH ONE (18:00)
[2023-12-24] MEDS ORDERED: ALBUTEROL SULFATE 0.5% 2.5 MG/0.5 ML VIAL INH ONE (18:00)
[2023-12-24 18:01] LABS: BASOPHILS 3.5 % (0-2); EOSINOPHILS 3.7 % (0-6); HEMATOCRIT 38.9 % (35.0-50.0); HEMOGLOBIN 13.1 g/dL (12.0-18.0); LYMPHOCYTES 16.9 % (24-44); MCH 32.4 (27-36); MCHC 33.6 g/dl (30-36); MCV 96.3 fl (81-99); MONOCYTES 7.9 % (0-12); PLATELET COUNT 187 K/uL (140-440); RBC 4.04 M/ul (4.3-5.7)
[2023-12-24 18:28] LABS: ALBUMIN 3.3 g/dL (3.4-5.0); ALBUMIN/GLOBULIN RATIO 1.06 (1.1-2.4); ANION GAP 13.3 (7-21); BILIRUBIN, TOTAL 0.6 ng/dL (0.2-1.0); BUN/CREATININE RATIO 11.62 (6.0-28.6); CALCIUM 8.6 mg/dL (8.5-10.1); CREATININE, SERUM 0.86 mg/dL (0.70-1.30); MAGNESIUM 1.7 mg/dL (1.8-2.4); POTASSIUM 3.3 mmol/L (3.5-5.1); PROTEIN, TOTAL 6.4 g/dL (6.4-8.2)
[2023-12-24] MEDS ORDERED: SODIUM CHLORIDE 0.9% 1,000 ML IV ONE (18:30)
[2023-12-24 18:36] LABS: INFLUENZA B NAA NEGATIVE (NEGATIVE); RESPIRATORY SYNCYTIAL VIR NAA NEGATIVE (NEGATIVE)
[2023-12-24] MEDS ORDERED: CEFTRIAXONE/SODIUM CHLORIDE 1 GM/100 ML PIGGYBACK IV ONE (18:45)
[2023-12-24] MEDS ORDERED: AZITHROMYCIN/DEXTROSE 500 MG/250 ML PIGGYBACK IV ONE (18:45)
[2023-12-24] MEDS ORDERED: methylPREDNISolone SOD SUCC 125 MG/2 ML VIAL IV ONE (18:45)
[2023-12-24] MEDS ORDERED: MAGNESIUM SULFATE 2 GM/50 ML BAG IV ONE (19:00)
[2023-12-24] MEDS ORDERED: niCARdipine HCL 50 MG in DEXTROSE 5% 250 ML IV SCH (19:00)
[2023-12-24] MEDS ORDERED: ALBUTEROL/IPRATROPIUM 3 ML NEB INH ONE (19:15)
[2023-12-24] MEDS ORDERED: PREDNISONE20 MG PO (19:55)
[2023-12-24 20:15] VITALS: BP 107/74
== END 2023-12-24 20:15 | disposition home or self-care (01) ==
LOC: ED 17:39
PROVIDERS: Emergency Medicine
DX: J45.901 Unspecified asthma with (acute) exacerbation (principal); E78.00 Pure hypercholesterolemia, unspecified; E11.9 Type 2 diabetes mellitus without complications; F17.200 Nicotine dependence, unspecified, uncomplicated; Z79.84 Long term (current) use of oral hypoglycemic drugs; Z79.4 Long term (current) use of insulin; Z79.51 Long term (current) use of inhaled steroids; Z79.899 Other long term (current) drug therapy
CPT/HCPCS: 36415; 71045; 80053; 82803; 83605; 83735; 83880; 84484; 85025; 87040; 87502; 93005; 93010; 94640; 94644; 96374; 96375; 99285-25; J0456; J0696; J2919; J3475; J7030; U0002

== ENCOUNTER 2024-01-31 21:26 | Emergency (ER) | payer OTHER ==
[~2024-01-31] VITALS: Ht 167.6 cm; Wt 86.1 kg
[2024-01-31] MEDS ORDERED: BUDESONIDE 0.5 MG/2 ML VIAL INH ONE (21:45)
[2024-01-31] MEDS ORDERED: methylPREDNISolone SOD SUCC 125 MG/2 ML VIAL IV ONE (21:45)
[2024-01-31 22:27] LABS: INFLUENZA B NAA NEGATIVE (NEGATIVE); RESPIRATORY SYNCYTIAL VIR NAA NEGATIVE (NEGATIVE)
[2024-02-01] MEDS ORDERED: AZITHROMYCIN 250 MG HOME.PACK PO ONE (00:15)
[2024-02-01] MEDS ORDERED: methylPREDNISolone 4 MG HOME.PACK PO ONE (00:15)
[2024-02-01 00:28] VITALS: BP 112/78
== END 2024-02-01 00:28 | disposition home or self-care (01) ==
LOC: ED 21:26
PROVIDERS: Family Medicine
DX: J44.1 Chronic obstructive pulmonary disease with (acute) exacerbation (principal); E11.9 Type 2 diabetes mellitus without complications; F17.200 Nicotine dependence, unspecified, uncomplicated; Z79.4 Long term (current) use of insulin; Z79.84 Long term (current) use of oral hypoglycemic drugs; Z79.899 Other long term (current) drug therapy
CPT/HCPCS: 71045; 87502; 94640; 96374; 99285-25; J2919; U0002

== ENCOUNTER 2024-03-20 21:45 | Inpatient (IN) | payer OTHER ==
[~2024-03-20] VITALS: Ht 167.6 cm; Wt 85.9 kg
[~2024-03-20 21:45] MED LIST changes: +VARENICLINE TART1 MG PO; -VARENICLINE1 EACH PO
[2024-03-20] MEDS ORDERED: ALBUTEROL/IPRATROPIUM 3 ML NEB INH PRN (22:00)
[2024-03-20] MEDS ORDERED: methylPREDNISolone SOD SUCC 125 MG/2 ML VIAL IV ONE (22:00)
[2024-03-20 22:09] LABS: PH, VENOUS 7.406 (7.31-7.41)
[2024-03-20 22:11] LABS: MCHC 34.2 g/dl (30-36); RDW 13.4 (10.5-15.0)
[2024-03-20 22:13] LABS: BASOPHILS 0.3 % (0-2); EOSINOPHILS 1.2 % (0-6); HEMATOCRIT 43.4 % (35.0-50.0); HEMOGLOBIN 14.8 g/dL (12.0-18.0); LYMPHOCYTES 6.5 % (24-44); MCH 32.6 (27-36); MCV 95.5 fl (81-99); MONOCYTES 10.5 % (0-12); NEUTROPHILS 81.5 % (39-80); PLATELET COUNT 195 K/uL (140-440); RBC 4.55 M/ul (4.3-5.7)
[2024-03-20 22:19] LABS: CORONAVIRUS COVID-19 AG NEGATIVE (NEGATIVE); INFLUENZA A AG NEGATIVE (NEGATIVE); INFLUENZA B AG NEGATIVE (NEGATIVE)
[2024-03-20] MEDS ORDERED: ALBUTEROL SULFATE 0.5% 2.5 MG/0.5 ML VIAL INH ONE (22:30)
[2024-03-20] MEDS ORDERED: IPRATROPIUM BROMIDE 2.5 ML VIAL INH ONE (22:30)
[2024-03-20 22:33] LABS: ALBUMIN 3.7 g/dL (3.4-5.0); ALBUMIN/GLOBULIN RATIO 1.16 (1.1-2.4); ALKALINE PHOSPHATASE 63 U/L (46-116); ALT (SGPT) 18 U/L (14-59); ANION GAP 15.1 (7-21); AST (SGOT) 10 U/L (15-37); BILIRUBIN, TOTAL 0.6 ng/dL (0.2-1.0); BUN/CREATININE RATIO 9.82 (6.0-28.6); CALCIUM 9.4 mg/dL (8.5-10.1); CARBON DIOXIDE 25 mmol/L (21-32); CHLORIDE 102 mmol/L (98-107); CREATININE, SERUM 1.12 mg/dL (0.70-1.30); GLOMERULAR FILTRATION RATE,EST 78 mL/min (>60); MAGNESIUM 1.6 mg/dL (1.8-2.4); POTASSIUM 4.1 mmol/L (3.5-5.1); PROTEIN, TOTAL 6.9 g/dL (6.4-8.2); UREA NITROGEN 11 mg/dL (7-18)
[2024-03-20 22:47] LABS: LACTIC ACID, BLOOD 3.5 mmol/L (0.4-2.0)
[2024-03-20] MEDS ORDERED: SODIUM CHLORIDE 0.9% 2,000 ML IV ONE (23:00)
[2024-03-20] MEDS ORDERED: CEFTRIAXONE/SODIUM CHLORIDE 2 GM/100 ML PIGGYBACK IV ONE (23:00)
[2024-03-21] VITALS (14 sets, daily range): BP systolic 94–132; BP diastolic 46–86
[2024-03-21] MEDS ORDERED: SODIUM CHLORIDE 0.9% 1,000 ML IV PRN (01:15)
[2024-03-21] MEDS ORDERED: ALBUTEROL SULFATE 0.083% 3 ML VIAL INH ONE (02:30)
[2024-03-21 04:54] LABS: BILIRUBIN, URINE NEGATIVE (negative); BLOOD/HGB, URINE NEGATIVE (Negative); KETONE, URINE TRACE (Negative); LEUK ESTERASE, URINE NEGATIVE (negative); NITRITE, URINE NEGATIVE (negative)
[2024-03-21 04:59] LABS: BACTERIA, URINE RARE /hpf (negative); CASTS, URINE NONE SEEN \\lpf; COLLECTION TYPE, URINE CLEAN CATCH; CRYSTALS, URINE NONE SEEN (0-1+); EPITHELIAL CELLS, URINE SQUAMOUS 1+ /lpf (0-1+); RED BLOOD CELLS, URINE 0-1 /hpf (0-5); REFLEX CULTURE, URINE No (No); WHITE BLOOD CELLS, URINE 0-1 /HPF (0-5)
[2024-03-21 05:09] LABS: AMPHETAMINES, URINE POSITIVE (NEGATIVE); BARBITURATES, URINE NEGATIVE (NEGATIVE); BENZODIAZEPINE, URINE NEGATIVE (NEGATIVE); BUPRENORPHINE, URINE NEGATIVE (NEGATIVE); CANNABINOID, URINE NEGATIVE (NEGATIVE); COCAINE, URINE NEGATIVE (NEGATIVE); ECSTASY, URINE POSITIVE (NEGATIVE); FENTANYL, URINE NEGATIVE (NEGATIVE); METHADONE, URINE NEGATIVE (NEGATIVE); OPIATES, URINE NEGATIVE (NEGATIVE); OXYCODONE, URINE NEGATIVE (NEGATIVE); PHENCYCLIDINE, URINE NEGATIVE (NEGATIVE)
--- NOTE | 2024-03-21 06:39 | NUR ---
PT ARRIVED TO ROOM. BEFORE PT IS MOVED OVER TO BED HE ASKS FOR SHOWER. RN EXPLAINS TO PT THAT DUE TO HIS RESP EFFORT AND STAFF AVAILABILITY, WE CANNOT DO THAT AT THIS TIME. PT BECOMES VERBALLY HOSTILE AND STATES "I AM TAKING A SHOWER NO MATTER WHAT YOU SAY! i'M JUST GOING TO LEAVE!" RN ADVISES PT THAT HE NEEDS OXYGEN AT THIS TIME AND HIS SATURATIONS ARE TOO LOW TO BE WITHOUT. PT DECLINES TO PUT NC ON. PT IS VERY SHORT OF BREATH AND STATES "I SHOULD BE FEELING BETTER BY NOW!" RN EDUCATES PT THAT HE NEEDS TO HAVE OXYGEN ON. PT PLACES NC ON AND VS COMPLETED. PT O2 IS 88% BUT RISES TO 90% ON 2 L. PT REFUSES TO PUT GOWN ON. RN ADVISES PT TO GET IN BED AND REST UNTIL HE CAN BREATH EASIER. PT WALKING AROUND IN BR. PT FINALLY DECIDES TO GET IN BED. O2 WAS TURNED UP TO 4LNC WHEN PT WAS WALKING AROUND, PT IS LESS SHORT OF BREATH, SPO2 94%. O2 TURNED DOWN TO 2L.
[2024-03-21] MEDS ORDERED: ALBUTEROL SULFATE 0.083% 3 ML VIAL INH PRN (07:00)
--- NOTE | 2024-03-21 07:00 | NUR ---
REPORT RECEIVED FROM HYDROELECTRIC STATION OPERATOR RN HODA. PATIENT IS LYING IN BED WITH 2L NC IN PLACE. PATIENT REPORTS NO SOB BUT RESPIRATIONS ARE LABORED. PATIENT STATED NO FURTHER NEEDS AT THIS TIME. CALL LIGHT AND PERSONAL BELONGINGS ARE WITHIN REACH.
[2024-03-21] MEDS ORDERED: ALBUTEROL SULFATE 0.042% 1.25 MG/3 ML VIAL INH SCH (08:00)
[2024-03-21] MEDS ORDERED: ALBUTEROL/IPRATROPIUM 3 ML NEB INH SCH ×3 (08:00→12:00)
[2024-03-21] MEDS ORDERED: BUDESONIDE 0.5 MG/2 ML VIAL INH SCH ×2 (08:00→20:00)
--- NOTE | 2024-03-21 08:27 | NUR ---
PATIENT IN BED AT THIS TIME. DAY CARE SUPERVISOR WENT INTO PATIENTS ROOM FOR HOURLY ROUNDS. CALL LIGHT WITHIN REACH, NO FURTHER NEEDS AT THIS TIME.
--- NOTE | 2024-03-21 08:34 | NUR ---
PATIENT IS SITTING UPRIGHT IN BED AND EATING BREAKFAST. NC IN PLACE. PATIENT STATED NO NEEDS AT THIS TIME. CALL LIGHT AND PERSONAL BELONGINGS ARE WITHIN REACH.
--- NOTE | 2024-03-21 08:52 | NUR ---
PATIENT IN BED AT THIS TIME. CAMERA MACHINIST CHARTED VITALS AND I&O'S. PATIENT STATED HE WATNED A SHOWER AFTER HIS NAP. CALL LIGHT WITHIN REACH, NO FURTHER NEEDS AT THIS TIME.
--- NOTE | 2024-03-21 09:11 | NUR ---
PATIENT IS LYING IN BED WITH EYES CLOSED AND RESPIRATIONS ARE EVEN AND UNLABORED. NC IN PLACE. CALL LIGHT AND PERSONAL BELONGINGS ARE WITHIN REACH.
--- NOTE | 2024-03-21 10:31 | NUR ---
PATIENT IS SITTING UPRIGHT IN BED AND REQUESING A NEUROLOGY MANAGER TO HELP HER BRUSH HER AFUA. TASK DELEGATED TO JERRY IVORY. PATIENT STATED NO FURTHER NEEDS. CALL LIGHT AND PERSONAL BELONGINGS ARE WITHIN REACH.
--- NOTE | 2024-03-21 10:40 | NUR ---
Spoke with Shade. He has labored breathing and states he is waiting for a breathing treatment. Pt lives at home with his girlfriend. He states he has [address]. Pt has a nebulizer and no other DME. He states he does not have any money, but his girlfriend pays for everything. Pt plans on dc to home. Pt was + for meth, but declines to speak with anyone from A&D. Charge nurse notified pt is wanting a breathing treatment and she notified respiratory.
--- NOTE | 2024-03-21 11:00 | NUR ---
ADMISSION FINISHED AT THIS TIME. FULL ASSESSMENT COMPLETE AND DOCUMENTED IN THE CHART. PATIENT IS ALERT AND ORIENTED TIMES FOUR. PATIENT IS ON A REGULAR DIET WITH SOFT TEXTURE. LAST BM WAS 03/19/24. BOWEL TONES ARE ACTIVE IN ALL FOUR QUADRANTS. PATIENT RATED PAIN A 5/10 IN THE CHEST FROM INCREASED WORK OF BREATHING. PATIENT IS NO LONGER REQUESTING ANYTHING FOR PAIN AT THIS TIME. IV SITE FLUSHED WITH 10 ML NORMAL SALINE AND IS SALINE LOCKED. IV DRESSING IS CLEAN, DRY, AND INTACT. CARDIAC WITH NORMAL S1 AND S2 ON AUSCULTATION. RADIAL AND PEDAL PULSES ARE STRONG BILATERALLY. CAPILLARY REFILL IN THE UPPER AND LOWER EXTREMITIES IS LESS THAN 3 SECONDS. SENSATION INTACT WITH NUMBNESS REPORTED IN THE BLE. PATIENT IS ON 4 L NC WITH THE CPOX AT BEDSIDE. O2 IS NOT CHRONICA. 6 L NC USED FOR ACTIVITY. WHEEZES AUSCULTATED THROUGHOUT. RT IN THE ROOM AND GAVE A BREATHING TREATMENT PRIOR TO ASSESSMENT. PATIENT STATED NO FURTHER NEEDS AT THIS TIME. CALL LIGHT AND PERSONAL BELONGINGS ARE WITHIN REACH.
[2024-03-21] MEDS ORDERED: ENOXAPARIN SODIUM 40 MG/0.4 ML SYR SUB-Q SCH (11:57)
[2024-03-21] MEDS ORDERED: NICOTINE 14 MG/24 HR 1 EA TDSY TD SCH (11:57)
[2024-03-21] MEDS ORDERED: hydrOXYzine pamoate 25 MG CAP PO PRN (12:00)
[2024-03-21] MEDS ORDERED: DEXTROSE 5% 1,000 ML IV PRN (12:00)
[2024-03-21] MEDS ORDERED: AZITHROMYCIN 250 MG TAB PO SCH (12:00)
[2024-03-21] MEDS ORDERED: INSULIN LISPRO 100 UNIT/ML ML SUB-Q SCH (12:00)
[2024-03-21] MEDS ORDERED: ondansetron HCL 4 MG/2 ML VIAL IV PRN (12:00)
[2024-03-21] MEDS ORDERED: IBLOOD GLUCOSE TEST STRIP 1 EA TEST XX PRN (12:00)
[2024-03-21] MEDS ORDERED: CEFTRIAXONE/SODIUM CHLORIDE 2 GM/100 ML PIGGYBACK IV SCH (12:00)
[2024-03-21] MEDS ORDERED: NICOTINE POLACRILEX 4 MG LOZENGE BUCCAL PRN (12:00)
[2024-03-21] MEDS ORDERED: DEXTROSE 50% 50 ML SYR IV PRN ×2 (12:00)
[2024-03-21] MEDS ORDERED: LACTATED RINGER'S 1,000 ML IV SCH ×2 (12:00→17:45)
[2024-03-21] MEDS ORDERED: GLUCAGON,HUMAN RECOMBINANT 1 MG/ML VIAL SUB-Q PRN (12:00)
[2024-03-21] MEDS ORDERED: IBLOOD GLUCOSE TEST STRIP 1 EA TEST VI SCH (12:00)
[2024-03-21] MEDS ORDERED: ACETAMINOPHEN 325 MG TAB PO PRN (12:00)
[2024-03-21] MEDS ORDERED: predniSONE 20 MG TAB PO SCH (12:00)
[2024-03-21] MEDS ORDERED: PHARMACY RENAL DOSE ADJUSTMENT 1 DOSE MISC PO SCH (12:00)
[2024-03-21] MEDS ORDERED: TRELEGY ELLIPT1 EACH INH (13:01)
--- NOTE | 2024-03-21 13:34 | NUR ---
IV FLUSHED WITH 10 ML NORMAL SALINE. IV DRESSING IS CLEAN, DRY, AND INTACT. LR IS INFUSING AT 100 ML/HR. RT NOTIFIED ABOUT GETTING A BREATHING TREATMENT. CPOX AT BEDSIDE. PATIENT WITH VISITOR SITTING IN THE CHAIR AT BEDSIDE. PATIENT STATED NO FURTHER NEEDS AT THIS TIME. CALL LIGHT AND PERSONAL BELONGINGS ARE WITHIN REACH.
--- NOTE | 2024-03-21 13:43 | NUR ---
PATIENT IN BED AT THIS TIME. JAVA TECH CHARTED VITALS AND I&O'S. CALL LIGHT WITHIN REACH, NO FRUTHER NEEDS AT THIS TIME.
--- NOTE | 2024-03-21 14:28 | NUR ---
VISITED DURING SPIRITUAL CARE ROUNDS. PT APPEARED TO BE SLEEPING. DID NOT DISTURB. PROVIDED PRAYER.
--- NOTE | 2024-03-21 14:37 | NUR ---
PATIENT IS LYING IN BED ON THEIR RIGHT SIDE. PATIENT READJUSTING HER NC AT THIS TIME. CPOX AT BEDSIDE. LR IS INFUSING AT 100 ML/HR. CALL LIGHT AND PERSONAL BELONGINGS ARE WITHIN REACH.
--- NOTE | 2024-03-21 14:46 | NUR ---
UR CLINICAL REVIEW: [facility] [place] GUIDELINE FOR COPD ODS [facility] INPT 03/21/24 @ 1158 ORDER MATCHES REG CLINICALS FAXED TO [facility] FOR AUTH REVIEW DISCHARGE TO HOME WHEN STABLE. ANTICIPATE 1-2 DAYS 03/23/24
--- NOTE | 2024-03-21 15:55 | NUR ---
FOCUSED ASSESSMENT COMPLETE AT THIS TIME. PATIENT WITH NO COMPLAINTS OF PAIN. IV SITE FLUSHED WITH 10 ML NORMAL SALINE. IV DRESSING IS CLEAN, DRY, AND INTACT. IV WITH LR INFUSING AT 100 ML/HR. LUNG SOUNDS WITH WHEEZES HEARD THROUGHOUT. PATIENT WITH NO COMPLAINTS OF SOB. CPOX AT BEDSIDE. DERIK RT IS IN THE ROOM. DERIK TURNED THE PATIENT DOWN TO 2 L NC. PATIENT IS GETTING A BREATHING TREATMENT AT THIS TIME. PATIENT AND RT STATED NO FURTHER NEEDS AT THIS TIME. CALL LIGHT AND PERSONAL BELONGINGS ARE WITHIN REACH.
--- NOTE | 2024-03-21 16:10 | NUR ---
PATIENT IS LYING IN BED WITH HOB ELEVATED. RT IS IN THE ROOM AND RECEIVING A BREATHING TREATMENT. CPOX AT THE BEDSIDE. CALL LIGHT AND PERSONAL BELONGINGS ARE WITHIN REACH.
--- NOTE | 2024-03-21 17:32 | NUR ---
MD NOTIFIED OF 1700 MEWS SCORE. VERBAL ORDER TO ADMINISTER 1L LR BOLUS OVER ONE HOUR NOW. MD WITH NO FURTHER ORDERS. CALL ENDED. RT NOTIFED OF PATIENT NEEDING A BREATHING TREATMENT. CALL ENDED.
[2024-03-21 17:54] LABS: PH, VENOUS 7.437 (7.31-7.41)
[2024-03-21 17:56] LABS: BASOPHILS 0.1 % (0-2); HEMATOCRIT 36.4 % (35.0-50.0); HEMOGLOBIN 12.5 g/dL (12.0-18.0); LYMPHOCYTES 7.1 % (24-44); MCH 32.8 (27-36); MCHC 34.3 g/dl (30-36); MCV 95.8 fl (81-99); MONOCYTES 10.4 % (0-12); NEUTROPHILS 82.4 % (39-80); PLATELET COUNT 169 K/uL (140-440); RDW 13.5 (10.5-15.0)
[2024-03-21] MEDS ORDERED: NOREPINEPHRINE BITARTRATE 250 ML IV SCH (18:00)
[2024-03-21] MEDS ORDERED: MAGNESIUM SULFATE 2 GM/50 ML BAG IV ONE (18:00)
[2024-03-21] MEDS ORDERED: methylPREDNISolone SOD SUCC 125 MG/2 ML VIAL IV ONE (18:00)
[2024-03-21 18:14] LABS: ALBUMIN/GLOBULIN RATIO 1.03 (1.1-2.4); ANION GAP 14.1 (7-21); BILIRUBIN, TOTAL 0.3 ng/dL (0.2-1.0); BUN/CREATININE RATIO 17.02 (6.0-28.6); CALCIUM 8.5 mg/dL (8.5-10.1); CREATININE, SERUM 0.94 mg/dL (0.70-1.30); MAGNESIUM 1.7 mg/dL (1.8-2.4); PHOSPHORUS, INORGANIC 3.4 mg/dL (2.5-4.9); POTASSIUM 4.1 mmol/L (3.5-5.1); PROTEIN, TOTAL 5.9 g/dL (6.4-8.2)
--- NOTE | 2024-03-21 18:20 | NUR ---
174- VISTARIL AND LR 1000 ML BOLUS ADMINISTERED PER THE EMAR. RT IS IN THE ROOM AT THIS TIME. PATIENT WITH LABORED BREATHING BUT IS REASSURABLE WITH TALK. PATIENT ABLE TO ANSWER AND SWALLOW PILL. 1744- RT DERIK LEFT THE ROOM TO GET A BIPAP AND RAPID RESPONSE WAS CALLED BY RT DERIK. CBG WAS 216. VITAL SIGNS TAKEN. SPO2 IS 98% WITH BIPAP AT 100%. HR IS 96. BP 98/43 WITH A MAP OF 56. AXILLARY TEMP OF 98.6. HANS CAM STARTED 20 GAUGE IN THE LEFT HAND. 1751- ARRIVED TO THE BEDSIDE. LABS ORDERED. BIPAP IS 12/4 AND 40% FIO2. SPO2 IS 98%. HR IS 105. 175- BP IS 89/52 WITH A MAP OF 60 WITH THE LONG CUFF, REGULAR CUFF BP IS 104/45 (57) AND HR IS 107. 2 GRAM MAGNESIUM SULFATE AND 60 MG SOLU-MEDROL ORDERED AT THIS TIME. LEVOPHED ORDERED IN EMAR PER VERBAL FROM DR. LOUISE. 1801- MAGNESIUM AND SOLU-MEDROL DOSE ADMINISTERED. 180- BP IS 108/49 WITH A MAP OF 60. HR IS 104. 97% ON BIPAP. 1809- HANS WILLSON AT BEDSIDE AND LEVOPHED DRIP STARTED. PATIENT LEFT THE FLOOR AND TO GO GET CT COMPLETE AND GO TO THE CRITICAL CARE UNIT. RT REMAINS PRESENT WITH CCU NURSE.
--- NOTE | 2024-03-21 19:05 | NUR ---
Assumed care of patient from Luz RN, Report recieved. This RN with patient during CT and transfer to CCU. Pt A+O, RR even and unlabored upon arrival to CCU. RT at bedside and removed bipap and placed on 4L NC. SPO2 94%. Levophed stopped, pt MAP >70 and tolerating well. IV bolus complete. Mag infusing. Pt lungs have slight exp wheeze and diminished on R side, air movement noted on L side. HRR. Pt updated on change of status, verbalizes understanding. All belongings moved with patient.
--- NOTE | 2024-03-21 19:45 | NUR ---
SHIFT REPORT RECEIVED. PATIENT FINISHED HIS DINNER AND IS SITTING UP IN BED WATCHING TV. AT BEDSIDE. IV FLUIDS INFUSING PER ORDER. SITE WNL. PATIENT TOLERATING 2L NC. PATIENT DENIED FEELING SOB AT THIS TIME.
--- NOTE | 2024-03-21 19:59 | NUR ---
1MG PULMICORT FOR 7 DAY MAX TO STRENGHTEN LUNGS DURING COPD/ASTHMA EXACERBATAION/ATTACK. NIGHT ONE BEGINS TONIGHT.
--- NOTE | 2024-03-21 20:30 | NUR ---
PATIENT RESTING WITH EYES CLOSED. NEB TREATMENT FINSIHED PER RT. PATIENT LUNG SOUNDS ARE COARSE WITH SOME EXP WHEEZE. PATIENT TOLERATING 2L NC. VS STABLE. PATIENT FAMILY AT BEDSIDE.
[2024-03-21] MEDS ORDERED: INSULIN GLARGINE-YFGN 100 UNIT/ML ML SUB-Q SCH (21:00)
[2024-03-21] MEDS ORDERED: MELATONIN 3 MG TAB PO PRN (21:00)
--- NOTE | 2024-03-21 21:45 | NUR ---
PATIENT ATTEMPTING TO EXIT THE BED TO USE BATHROOM. ASSISTED TO USE URNAL BY SANDI MAXWELL. PATIENT BACK IN BED. CALL LIGHT IN REACH. BED ALARM ACTIVE.
[2024-03-22] VITALS (16 sets, daily range): BP systolic 90–117; BP diastolic 50–80
--- NOTE | 2024-03-22 | NUR ---
PATIENT APPEARS RESTFUL. PATIENT WAKES EASILY TO VOICE. DENIED ANY NEEDS OR CONCERNS. VS STABLE. TOLERATING 1L NC PER RT.
--- NOTE | 2024-03-22 02:15 | NUR ---
BP CUFF REPOSITIONED. PATIENT ROLLED TO HIS BACK, HE HAD BEEN LAYING ON RIGHT SIDE. CARDIAC LEADS REPLACED. NEW BAG IV FLUIDS STARTED PER ORDER; IV SITE WNL. PATIENT DENIED NEEDS. TOLERATING 1L NC.
--- NOTE | 2024-03-22 03:52 | NUR ---
Shade could benefit from an overnight sleep study & may need home O2 when asleep until sleep study is scheduled.
--- NOTE | 2024-03-22 04:16 | NUR ---
URNAL EMPTIED. PATIENT SITTING UP IN BED HAVING A SNACK. PATIENT DENIED FEELING SOB. VS STABLE. IV SITE WNL. TOLERATING 1L NC. RT IN ROOM FOR [facility].
[2024-03-22 05:47] LABS: BASOPHILS 0.1 % (0-2); HEMATOCRIT 38.5 % (35.0-50.0); LYMPHOCYTES 6.6 % (24-44); MCH 32.5 (27-36); MCHC 33.9 g/dl (30-36); MCV 96.1 fl (81-99); MONOCYTES 11.5 % (0-12); NEUTROPHILS 81.8 % (39-80); PLATELET COUNT 163 K/uL (140-440); RDW 13.7 (10.5-15.0)
[2024-03-22 06:01] LABS: ANION GAP 10.2 (7-21); BUN/CREATININE RATIO 18.75 (6.0-28.6); CALCIUM 8.7 mg/dL (8.5-10.1); CREATININE, SERUM 0.96 mg/dL (0.70-1.30); MAGNESIUM 2.1 mg/dL (1.8-2.4); POTASSIUM 4.2 mmol/L (3.5-5.1)
--- NOTE | 2024-03-22 07:48 | NUR ---
REPORT RECIVED FROM BOW STAPLER RN. PATIENT RESTING IN BED AT THIS TIME. PATIENT ON 1.5L. PER REPORT NO BIPAP OVERNIGHT. CALL LIGHT IN REACH. URINAL EMPTIED. RT IN AT THE BEDSIDE.
[2024-03-22] MEDS ORDERED: methylPREDNISolone SOD SUCC 125 MG/2 ML VIAL IV SCH (09:00)
--- NOTE | 2024-03-22 09:45 | NUR ---
PATIENT RESTING IN THE BED. MEDICATIONS GIVEN. PATIENT DNIES ANY NEEDS AT THIS TIME. CALLL IGHT IN REACH. PATIENT ON CELL PHONE.
--- NOTE | 2024-03-22 11:26 | NUR ---
call to notifpam of low bp and hr 85/55 map 66, hr 92 - notified kenisha conroy. order for 1 l lr bolus.
[2024-03-22] MEDS ORDERED: LACTATED RINGER'S 1,000 ML IV SCH (11:30)
--- NOTE | 2024-03-22 12:00 | NUR ---
MD IN TO SEE PATIENT AND DISCUSS PLAN OF CARE. PATIENTS RADHA WAS IN TO SEE PATIENT AND UPDATED ON PLAN. ALL QUESTIONS ANSWERED. NO OTHER NEEDS AT THIS TIME.
--- NOTE | 2024-03-22 12:06 | NUR ---
VISITED [facility] SPIRIT[facility] ROUNDS. PT APPEARED TO BE SLEEPING. DID NOT DISTURB. PROVIDED PRAYER.
--- NOTE | 2024-03-22 14:00 | NUR ---
PATIENT RESTING IN BED ON LEFT SIDE AT THIS TIME. RR EVEN AND UNLABORED. PATIENTS DAD CALLED AND PROVIDED WITH UPDATE PER PATIENT. PATIENT REPORTS FEELING MUCH BETTER THAN PRIOR DAY. CALL LIGHT IN REACH. WILL PROVIDE SHOWER THIS AFTERNOON.
--- NOTE | 2024-03-22 14:05 | NUR ---
SLEEPING AT THIS TIME. ALLOWED TO REST. NO CM NEEDS NOTED WITH PREVIOUS DISCUSSIONS.
--- NOTE | 2024-03-22 15:00 | NUR ---
PATIENT REMAINS ON 1L NC. PATIENT WANTS TO SHOWER AND HAS BEEN ASKING ALL DAY. ASSISTED PATIENT UP TO WHEELCHAIR AND INTO SHOWER WITH NURSE EXAMINER. LINEN CHANGED. PATIENT PLACED ON 3L OXYGEN FOR AMBULATION. PATIENT AGREEABLE TO PLAN OF CARE.
--- NOTE | 2024-03-22 15:18 | NUR ---
PATIENT REMAINS ON OXYGEN. DISCUSSED POTENTIAL NEED FOR HOME OXYGEN. STATES IF HE IS GOING TO END UP NEEDING HOME OXYGEN, HAS NO PREFERENCE WHICH COMPANY. WILL CONTINUE TO FOLLOW-UP WITH PATIENT.
--- NOTE | 2024-03-22 15:26 | NUR ---
PATIENT BROUGHT TO ROOM 118 FOR SHOWER WITH MED/SURG MEDICATION ADMINISTRATION PROFESSIONAL. LINEN CHANGE DONE.
[2024-03-22] MEDS ORDERED: ALBUTEROL SULFATE 0.5% 2.5 MG/0.5 ML VIAL ONE (15:50)
--- NOTE | 2024-03-22 15:58 | NUR ---
PATIENT BACK FROM SHOWER AND MORE SHORT OF BREATH WITH ACTIVITY. ASSISTED BACK TO BED AND PLACED ON BIPAP. SPO2 95%. HOOKED BACK UP TO HEART MONITOR AND HR 100. BP- 117/80. RT NOTIFIED AND IN TO DO NEB FOR PATIENT. WILL GIVE PRN ANXIETY MEDICATION WHEN DONE WITH NEB TREATMENT. PATIENT BETTER ON BIPAP AT THIS TIME. FAMILY PRESENT. RT REMAINS AT THE BEDSIDE TO DO 1HR NEB WITH PATIENT PER MD.
[2024-03-22] MEDS ORDERED: ALBUTEROL SULFATE 0.5% 2.5 MG/0.5 ML VIAL INH ONE (16:00)
--- NOTE | 2024-03-22 18:15 | NUR ---
PATIENT ONLY ON BIPAP FOR LESS THAN 30 MINUTES AND NOW TOLERATING OXYGEN ON 2L. RR EVEN AND UNLABORED. PATIENT RR 20. PATIENTS SIGNIFICANT OTHER AT THE BEDSIDE AND UPDATED ON PLAN OF CARE. PATIENT SAT UP AND ATE DINNER AND TOLERATED WELL. CALL LIGHT IN REACH.
--- NOTE | 2024-03-22 19:30 | NUR ---
SHIFT REPORT RECEIVED. PATIENT RESTING IN BED. EYES CLOSED. VS STABLE. 3L NC IN PLACE. IV FLUIDS PER ORDER. SITE WNL. CALL LIGHT IN REACH.
--- NOTE | 2024-03-22 21:00 | NUR ---
RT IN ROOM FOR NEB TREATMENT. PATIENT TITRATED TO 2L NC.
--- NOTE | 2024-03-22 21:30 | NUR ---
ACCU CHECK DONE. SSI AND SCHEDULED MEDS PROVIDED PER ORDER. PATIENT WAKES EASILY TO VOICE. PATIENT IS WITHDRAWN BUT ANSWERS QUESTIONS APPROPRIATELY. PATIENT DENIED GI UPSET, PAIN, OR SOB. LUNG SOUNDS ARE TIGHT THROUGHOUT, COARSE AND EXP WHEEZE NOTED. ABD IS SOFT. URNAL EMPTIED, PATIENT HAS GOOD OUTPUT AND URINE IS CLEAR YELLOW. IV FLUIDS CONTINUED PER ORDER. SITE WNL. LIGHTS DIMMED. CALL LIGHT IN REACH. BED ALARM ACTIVE.
--- NOTE | 2024-03-22 23:00 | NUR ---
PATIENT RESTING QUIETLY WITH EYES CLOSED. RESPIRATIONS EVEN AND UNLABORED; SP02 94% RA. CALL LIGHT IN REACH, BED EXIT ALARM ON.
[2024-03-23] VITALS (13 sets, daily range): BP systolic 95–136; BP diastolic 56–79
--- NOTE | 2024-03-23 01:10 | NUR ---
PATIENT UP HAVING A SNACK AND USED THE URNAL. URNAL EMPTIED. PATIENT TOLERATING 1L NC. DENIED ANY NEEDS OR CONCERNS AT THIS TIME. CALL LIGHT IN REACH.
--- NOTE | 2024-03-23 03:00 | NUR ---
PATIENT USING URNAL IN BED. TOLERATING 1L NC. VS STABLE. PATIENT DENIED ANY NEEDS AT THIS TIME.
--- NOTE | 2024-03-23 03:52 | NUR ---
DECREASED GRETCHEN'S LPM TO 2L AT 1945 ON 03.22.2024. DECREASED GRETCHEN'S LPM TO 1LPM AT 0345 ON 03.23.2024. COPD PATIENT, THEREFORE WE WANT TO MAINTAIN AN SPO2 OF 88-92%.
--- NOTE | 2024-03-23 05:30 | NUR ---
PATIENT SITTING UP IN BED. NONPRODUCTIVE COUGH NOTED. PATIENT TOLERATING 1L NC. VS STABLE. IV FLUIDS PER ORDER; SITE WNL. PATIENT DENIED ANY NEEDS. USING URNAL AT BEDSIDE. PATIENT LUNG SOUNDS ARE COARSE AND TIGHT THROUGHOUT. DENIES FEELING SOB AT THIS TIME. CALL LIGHT IN REACH.
[2024-03-23 05:50] LABS: ANION GAP 13.1 (7-21); BUN/CREATININE RATIO 21.25 (6.0-28.6); CALCIUM 8.8 mg/dL (8.5-10.1); CREATININE, SERUM 0.8 mg/dL (0.70-1.30); MAGNESIUM 1.8 mg/dL (1.8-2.4); PHOSPHORUS, INORGANIC 3.9 mg/dL (2.5-4.9); POTASSIUM 4.1 mmol/L (3.5-5.1)
--- NOTE | 2024-03-23 07:45 | NUR ---
REPORT RECIVED FROM GRISTMILL OPERATOR RN. PATIENT IN BED ON 1L NC. PATIENT CALLS APPROPRIATELY. CALL LIGHT IN REACH. PATIENT ON MONITOR.
--- NOTE | 2024-03-23 09:58 | NUR ---
PATIENT UP EATING BREAKFAST IN BED. PATIENT ON 1L NC. RT IN TO WORK WITH PATIENT. PATIENT URINAL EMPTIED AND BREAKFAST TOELRATED WELL. PER MD PATIENT CAN TRANSFER TO [facility] TODAY. CALL LIGHT IN REACH. PATIENT DENIES NO OTHER NEEDS AT THIS TIME.
--- NOTE | 2024-03-23 10:20 | NUR ---
INTO SEE PATIENT. PATIENT STATES HE IS MOVING TO [facility] TODAY AND HAD A BETTER NIGHT. PATIENT STATES HE IS GOING HOME WITH HIS GIRLFRIEND AND THATS WHO WILL BE PICKING HIM UP AT TIME OF DISCHARGE. DAUGHTER CHARLI IS ALSO AVAIABLE. PATIENT DENIES ANY NEEDS FROM AT THIS TIME.
--- NOTE | 2024-03-23 10:39 | NUR ---
VISITED DURING SPIRITUAL CARE ROUNDS. PT APPEARED TO BE SLEEPING. DID NOT DISTURB. PROVIDED PRAYER.
--- NOTE | 2024-03-23 11:33 | NUR ---
UR CONCURRENT/CLINICAL REVIEW: [facility] INPT GUIDELINE FOR COPD, VARIANCE FOR DC MILESTONE ENTERED. CONTINUED NEED FOR IV ANITBIOTICS AND STEROIDS, REMAINS ON OXYGEN ODS [facility] INPT 03/21/24 @ 1158 ORDER MATCHES REG CLINICALS FAXED TO [facility] FOR AUTH REVIEW DISCHARGE TO HOME WHEN STABLE. ANTICIPATE 2-3 DAYS 03/26/24
--- NOTE | 2024-03-23 12:05 | NUR ---
PATIENT CALLED AND REQUESTED A NEB AND REPORTED INCREASED SHORTNESS OF BREATH. RT IN TO ASSES PATIENT AND NEB ADMINISTERED. PATIENT REPORTS IMPROVEMENT WITH TREATMENT AND BREATH SOUNDS ARE MUCH IMPROVED. PATIENT CONTINUES TO HAVE AN EXP. WHEEZE BUT INCREASED BREATH SOUNDS ARE PRESENT.
--- NOTE | 2024-03-23 12:10 | NUR ---
PT TO RM 113 VIA BED. PT JUST FINISHED NEB TREATMENT IN CCU, STATES HE IS "FEELING A LITTLE BIT BETTER". CALL LIGHT WITHIN REACH. VS TAKEN RIGHT BEFORE TRANSFER FROM CCU. PT HAS NO REQUESTS AT THIS TIME.
--- NOTE | 2024-03-23 12:34 | NUR ---
PT ATE LUNCH AND TOLERATED WELL. IN ROOM WATCHING TV, NO REQUESTS AT THIS TIME. CPOX ON AND 90% ON 1 L 02. CALL LIGHT WITHIN REACH.
--- NOTE | 2024-03-23 13:07 | NUR ---
REPORT PROVIDED TO SAMUEL MAXWELL AND PATIENT TRANSFERED TO [facility] ROOM 113. PATIENT TRANSFERED TO ROOM VIA BED WITH RN. PATIENT FOOD SENT WITH PATIENT. ALL QUESTIONS ANSWERED. NO OTHER NEEDS AT THIS TIME. ALL QUESTIONS ANSWERED.
--- NOTE | 2024-03-23 13:38 | NUR ---
PATIENT IN BED AT THIS TIME. [employer] MAIL CARRIER CHARTED VITALS AND I&O'S. CALL LIGHT WITH IN REACH NOTHING ELSE NEEDED AT THIS TIME.
--- NOTE | 2024-03-23 14:20 | NUR ---
PT RESTING IN BED WITH EYES CLOSED. CALL LIGHT WITHIN REACH, RESPIRATIONS EVEN AND UNLABORED. O2 SAT 92% ON 1L, CPOX ON.
--- NOTE | 2024-03-23 14:35 | NUR ---
PT STATES HE IS VERY ANXIOUS RIGHT NOW, SCHEDULED BUSPAR GIVEN. SITTER 1:1 IN ROOM. OFFERED PT SUPPORT, PT WATCHING TV, STATES NO OTHER NEEDS AT THIS TIME.
--- NOTE | 2024-03-23 15:04 | NUR ---
PT UP TO CHAIR WITH LEGS ELEVATED. PT STATES SOB WTIH EXERTION. O2 SAT REMAINS 90% ON 1L. CALL LIGHT WITHIN REACH.
--- NOTE | 2024-03-23 15:07 | NUR ---
RT CALLED FOR TREATMENT.
--- NOTE | 2024-03-23 15:30 | NUR ---
PT RECEIVED RESPIRATORY TREATMENT, NOW RESTING IN CHAIR WITH LEGS RECLINED. EYES CLOSED AND RESPIRATIONS EVEN AND UNLABORED. O2 SAT 90% ON 1L PER NC. CALL LIGHT WITHIN REACH.
--- NOTE | 2024-03-23 17:01 | NUR ---
PT SITTING UP IN BED WATCHING TV AND EATING DINNER. CALL LIGHT WITHIN REACH AND NO REQUESTS AT THIS TIME.
--- NOTE | 2024-03-23 17:43 | NUR ---
PATIENT IS IN BED AT THIS TIME. TAPPER SUPERVISOR CHARTED VITALS AND I&O'S. CALL LIGHT WITHIN REACH, NOTHING ELSE NEEDED AT THIS TIME.
--- NOTE | 2024-03-23 18:11 | NUR ---
pt resting in bed watching tv, call lights within reach. no requests at this time.
--- NOTE | 2024-03-23 20:25 | NUR ---
GRETCHEN HAS ALBUTEROL FOR RESCUE AT HOME. HE WOULD BENEFIT FROM HOME DUONEB BID VIA A NEBULIZER (OF WHICH HE ALREADY HAS, BUT NEEDS A DUONEB RX).
[2024-03-23] MEDS ORDERED: INSULIN GLARGINE-YFGN 100 UNIT/ML ML SUB-Q SCH (21:00)
--- NOTE | 2024-03-23 21:47 | NUR ---
Awakens easily, no c/o pain. on 2LNC O2, cpox at bedside, O2 not chronic. lungs dim at bases, no sob with exertion, turned and repositioned in bed, bed alarms inplace. abd soft. IVF infusing LFA. CBG 219 received 5 untis SSI and 15 units Lantus. cooperative. tolerating liquids well. Used urinal, dark yellow urine
--- NOTE | 2024-03-23 22:32 | NUR ---
RESATAING, EYES CLOSED, Q PUMP CRYOCUFF TO R KNEE AREA, TEDHOSE, FOOT PUMPS IN PLACE. ON ROOM AIR, NO S/SX DISTRESS
--- NOTE | 2024-03-23 22:42 | NUR ---
RESTING, EYES CLOSED, O2 2LNC CPOX AT BEDSIDE, NO S/.SX DISTRESS. BED ALRM IN PLACE
--- NOTE | 2024-03-24 01:30 | NUR ---
RESTING, EYES CLOSED, O2 TITRATED TO 1L EARLIER BY RT. NO S/SX DISTRESS, CPOX AT BEDSIDE, IVF INFUSING W/O PROBLEMS. REPOSITIONS SELF IN BED
--- NOTE | 2024-03-24 03:25 | NUR ---
awake, sitting edge of bed, snacks given on requests. IVF infusing w/o problems. voided using urinal. No c/o pain or SOB. on 1LNC O2
--- NOTE | 2024-03-24 04:21 | NUR ---
0400 BREATHING TREATMENT HELD BECAUSE GRETCHEN IS SLEEPING. SPO2 IS 90%, BREATH SOUNDS: UPPER LOBES ARE CLEAR, LOWERS LOBES REFLECT FINE CRACKLES BUT CLEAR.
[2024-03-24 05:32] LABS: BASOPHILS 0.1 % (0-2); HEMATOCRIT 39.1 % (35.0-50.0); HEMOGLOBIN 13.1 g/dL (12.0-18.0); LYMPHOCYTES 7.6 % (24-44); MCH 32.7 (27-36); MCHC 33.6 g/dl (30-36); MCV 97.2 fl (81-99); MONOCYTES 4.3 % (0-12); PLATELET COUNT 161 K/uL (140-440); RBC 4.03 M/ul (4.3-5.7); RDW 13.4 (10.5-15.0)
[2024-03-24 05:36] VITALS: BP 119/83
[2024-03-24 05:38] VITALS: BP 119/83
--- NOTE | 2024-03-24 05:40 | NUR ---
Awakens easily, on 1LNC O2, cpox at bedside, sats WNL, O2 not chornic, no sob noted . irritable mood at times but redirectable. Has slept most of this shift. no c/o pain. IVF infusing w/o problems. voiding QS using urinal.
[2024-03-24 05:53] LABS: ALBUMIN 2.8 g/dL (3.4-5.0); ALBUMIN/GLOBULIN RATIO 0.93 (1.1-2.4); ANION GAP 14.3 (7-21); BILIRUBIN, TOTAL 0.3 mg/dL (0.2-1.0); BUN/CREATININE RATIO 18.07 (6.0-28.6); CALCIUM 8.6 mg/dL (8.5-10.1); CREATININE, SERUM 0.83 mg/dL (0.70-1.30); MAGNESIUM 1.8 mg/dL (1.8-2.4); POTASSIUM 4.3 mmol/L (3.5-5.1); PROTEIN, TOTAL 5.8 g/dL (6.4-8.2)
--- NOTE | 2024-03-24 07:00 | NUR ---
REPORT REC'D FROM HANS DIAZ. PT RESTING QUIETLY IN BED, O2 IN PLACE. SIDERAILS UP X2, CALL SANDERSON IN REACH, BED IN LOW POSITIONA AND LOCKED, LR INFUSING AT 125/HR
[2024-03-24] MEDS ORDERED: ALBUTEROL/IPRATROPIUM 3 ML NEB INH SCH (08:00)
[2024-03-24] MEDS ORDERED: INSULIN LISPRO 100 UNIT/ML ML SUB-Q SCH (08:00)
--- NOTE | 2024-03-24 08:30 | NUR ---
PT REPORTS NICOTINE PATCH REALLY DOESN'T WORK AND HE IS STILL HAVING CRAVINGS. PT PROVIDED WITH NICOTINE LOZENGER, INSTRUCTED ON USE.
[2024-03-24] MEDS ORDERED: predniSONE 20 MG TAB PO SCH (09:00)
--- NOTE | 2024-03-24 09:08 | NUR ---
RN INFORMED BY RT OF PATIENT O2 STATUS AND BEING TRIALED FOR HOME O2. PT WISHING TO ALSO SHOWER, WILL ATTEMPT LATER WITHOUT O2 AND WITH PULSE OX MONITORING.
[2024-03-24 09:21] VITALS: BP 121/69
--- NOTE | 2024-03-24 09:25 | NUR ---
PATIENT IN BED AT THIS TIME. DIESEL DRAGLINE OPERATOR CHARTED VITALS AND I&O'S, AND GOT EVERYTHING READY FOR HIS SHOWER. CALL LIGHT IS WITHIN REACH, NOTHING ELSE NEEDED AT THIS TIME.
[2024-03-24 09:56] VITALS: BP 121/69
--- NOTE | 2024-03-24 10:48 | NUR ---
UNIFORM CAP OPERATOR ASSISTED WITH SHOWER, CHANGED LINENS, CLEANED UP ROOM, AND ASSISTED PATIENT BACK TO BED. PROVIDED FRESH WATER AND APPLE SAUCE. CALL LIGHT WITH IN REACH, NOTHING ELSE NEEDED AT THIS TIME.
--- NOTE | 2024-03-24 11:23 | NUR ---
PT O2 SATS DURING ACTIVITY/SHOWER 93% ON RA PER REPORT
[2024-03-24] MEDS ORDERED: NICOTINE PATCH1 EACH TD (11:27)
[2024-03-24] MEDS ORDERED: NICOTINE LOZENGE4 MG BUCCAL (11:27)
[2024-03-24] MEDS ORDERED: PREDNISONE20 MG PO (11:30)
[2024-03-24] MEDS ORDERED: INSULIN GLARGINE-YFGN 100 UNIT/ML ML SUB-Q SCH (21:00)
== END 2024-03-24 13:02 | disposition home or self-care (01) | DRG 189 ==
LOC: ED 21:45 → MS 21:46 → CCU 03-21 11:58 → MS 03-21 11:58 → CCU 03-21 11:58 → MS 03-21 11:59 → CCU 03-21 18:17 → MS 03-23 12:05
PROVIDERS: Emergency Medicine; ADMIT Student in an Organized Health Care Education/Training Program; ATTEND Student in an Organized Health Care Education/Training Program
DX: J96.01 Acute respiratory failure with hypoxia (principal); J44.1 Chronic obstructive pulmonary disease with (acute) exacerbation; E87.20 Acidosis, unspecified; E11.9 Type 2 diabetes mellitus without complications; F15.90 Other stimulant use, unspecified, uncomplicated; F17.210 Nicotine dependence, cigarettes, uncomplicated; E78.00 Pure hypercholesterolemia, unspecified; E55.9 Vitamin D deficiency, unspecified; Z87.442 Personal history of urinary calculi; Z79.4 Long term (current) use of insulin; Z79.899 Other long term (current) drug therapy; Z79.84 Long term (current) use of oral hypoglycemic drugs; Z71.51 Drug abuse counseling and surveillance of drug abuser
CPT/HCPCS: 36415; 51798; 71045; 71260; 80048; 80053; 80307; 81001; 82803; 83036; 83605; 83735; 83880; 84100; 84484; 85025; 93005; 93010; 94640; 94644; 94660; 94667; 94668; 94760; 94761; 94762; 94799; 96361; 96365; 96375; 99285-25; 99406; A9270; J0696; J1650; J1815; J2919; J3475; J7030; J7121; J7512; Q0177; Q9967